=== PATIENT | male | born 1965 | race American Indian/Alaskan Native ===

== ENCOUNTER 2021-09-05 14:16 | Emergency (ER) | payer OTHER ==
[~2021-09-05] VITALS: Ht 180.3 cm; Wt 82.7 kg
[2021-09-05] MEDS ORDERED: ROSU10TA6 PO (14:28)
[2021-09-05] MEDS ORDERED: TELM1TAB16 PO (14:28)
[2021-09-05] MEDS ORDERED: AMLO1TAB25 PO (14:28)
[2021-09-05] MEDS ORDERED: NALT50TA4 PO (14:28)
[2021-09-05] MEDS ORDERED: HYDR50TA70 PO (14:28)
[2021-09-05] MEDS ORDERED: CYMB60CA4 PO (14:28)
[2021-09-05] MEDS ORDERED: MELA3TAB21 PO (14:28)
[2021-09-05] MEDS ORDERED: GABA-283 PO (14:28)
[2021-09-05] MEDS ORDERED: PREV15TA2 PO (14:28)
[2021-09-05] MEDS ORDERED: traMADol 50 MG TAB PO ONE (16:50)
[2021-09-05] MEDS ORDERED: MEDR4PAK PO (16:59)
--- OUTSIDE RECORDS SUMMARY | 2021-09-05 17:13 | CCD | Continuity of Care Document ---
Author Author Laith RIZO Organization Unknown Address [id number] [place] [address] [address] [place] [address] Phone [phone] Care Team Providers Care Scratcher Name Role Phone SYED RIZO AUTM [phone] Social History Type Date Description Comments Sex Unknown Procedures Date Code Description Status 08/01/2021 96906 Office/Outpatient Established Lo w MDM 20-29 Min Completed 04/18/2021 46107 Office/Outpatient New Low MDM 30 -44 Minutes Completed Encounters Type Date Location Provider Dx Diagnosis Office Visit 08/01/2021 2:00p [facility] ALEX Villafuerte M54.5 Low back pain M51.36 Other intervertebral disc de generation, lumbar region F41.9 Anxiety disorder, unspecifie d Office Visit 04/18/2021 10:30a [facility] ALEX Villafuerte I10 Essential (primary) hyperten joe E78.5 Hyperlipidemia, unspecified Assessments Date Code Description Provider 08/01/2021 M54.5 Low back pain ALEX Ruiz 08/01/2021 M51.36 Other intervertebral disc degene ration, lumbar region ALEX Wiley 08/01/2021 F41.9 Anxiety disorder, unspecified Fr ALEX Richards 04/18/2021 I10 Essential (primary) hypertension ALEX Wiley 04/18/2021 E78.5 Hyperlipidemia, unspecified ALEX Smith Referrals Refer to Reason for Referral Status Appt Date Pain Clinic @ [facility] PATIENT WITH C/O CHRONIC NEC K AND LOW BACK PAIN. PLEASE EVAL AND TREAT. Sent [address] [place] [address] [phone]
--- OUTSIDE RECORDS SUMMARY | 2021-09-05 17:14 | CCD ---
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 Role Phone Benjamin JONES MD Unavailable Unavailable ROSLYN, Benjamin SALAS MD Unavailable Unavailable ROSLYN, Benjamin SALAS MD Unavailable Unavailable ROSLYN, Benjamin SALAS MD Unavailable Unavailable ROSLYN, Benjamin SALAS MD Unavailable Unavailable ROSLYNBenjamin VICTORIA MD Unavailable Unavailable ROSLYN, Benjamin SALAS MD Unavailable Unavailable ROSLYN, Benjamin SALAS MD Unavailable Unavailable ROSLYN, Benjamin SALAS MD Unavailable Unavailable ROSLYN, Benjamin SALAS MD Unavailable Unavailable ROSLYN, Benjamin SALAS MD Unavailable Unavailable Benjamin JONES MD Unavailable Unavailable ROSLYNBenjamin VICTORIA MD Unavailable Unavailable ROSLYNBenjamin VICTORIA MD Unavailable Unavailable ROSLYNBenjamin MD Unavailable Unavailable ROSLYN, Benjamin SALAS MD Unavailable Unavailable ROSLYN, Benjamin SALAS MD Unavailable Unavailable ROSLYNBenjamin VICTORIA MD Unavailable Unavailable Benjamin JONES MD Unavailable Unavailable Benjamin JONES MD Unavailable Unavailable ROSLYNBenjamin VICTORIA MD Unavailable Unavailable ROSLYN, Benjamin SALAS MD Unavailable Unavailable ROSLYN, Benjamin SALSA MD Unavailable Unavailable ROSLYN, Benjamin SALAS MD Unavailable Unavailable ROSLYN, Benjamin SALAS MD Unavailable Unavailable ROSLYN, Benjamin SALAS MD Unavailable Unavailable ROSLYNBenjamin MD Unavailable Unavailable ROSLYNBenjamin VICTORIA MD Unavailable Unavailable ROSLYNBenjamin VICTORIA MD Unavailable Unavailable ROSLYNBenjamin MD Unavailable Unavailable ROSLYN, Benjamin SALAS MD Unavailable Unavailable ROSLYN, N DANICARI Unavailable Unavailable ROLSYN, N DANICARI Unavailable Unavailable ROSLYN, N NASRI Unavailable Unavailable ROSLYN, N NASRI Unavailable Unavailable ROSLYN, N NASRI MD Unavailable Unavailable ROSLYN, N NASRI Unavailable Unavailable ROSLYN, N DANICARI Unavailable Unavailable ROSLYN, N DANICARI Unavailable Unavailable ROSLYN, N DANICARI Unavailable Unavailable ROSLYN, N NASRI Unavailable Unavailable ROSLYN, N DANICARI Unavailable Unavailable ROSLYN, N NASRI Unavailable Unavailable ROSLYN, N DANICARI Unavailable Unavailable ROSLYN, N DANICARI Unavailable Unavailable ROSLYN, N DANICARI Unavailable Unavailable ROSLYN, N DANICARI Unavailable Unavailable ROSLYN, N NASRI MD Unavailable Unavailable ROSLYN, N DANICARI MD Unavailable Unavailable ROSLYN, N DANICARI MD Unavailable Unavailable ROSLYN, N DANICARI Unavailable Unavailable ROSLYN, N DANICARI Unavailable Unavailable ROSLYN, N DANICARI Unavailable Unavailable ROSLYN, N DANICARI Unavailable Unavailable ROSLYN, N JOSUE ALANIS Unavailable Unavailable ROSLYN, N DANICARI Unavailable Unavailable ROSLYN, N DANICARI Unavailable Unavailable ROSLYN, N JOSUE ALANIS Unavailable Unavailable ROSLYN, N JOSUE ALANIS Unavailable Unavailable ROSLYN, N JOSUE ALANIS Unavailable Unavailable ROSLYN, N DANICARI Unavailable Unavailable ROSLYN, N DANICARI Unavailable Unavailable ROSLYN, N DANICARI Unavailable Unavailable ROSLYN, N JOSUE ALANIS Unavailable Unavailable ROSLYN, Benjamin SALAS MD Unavailable Unavailable ROSLYN, N JOSUE ALANIS Unavailable Unavailable ROSLYN, N JOSUE ALANIS Unavailable Unavailable ROSLYN, N JOSUE ALANIS Unavailable Unavailable ROSLYN, N JOSUE ALANIS Unavailable Unavailable Marlon, Donnie Johnson MD Unavailable Unavailable Marlon, Donnie Johnson MD Unavailable Unavailable Marlon, Donnie Johnson MD Unavailable Unavailable Marlon, Donnie Johnson MD Unavailable Unavailable Marlon, Donnie Johnson MD Unavailable Unavailable Marlon, Donnie Johnson MD Unavailable Unavailable Marlon, Donnie Johnson MD Unavailable Unavailable Marlon, Donnie Johnson MD Unavailable Unavailable Marlon, Donnie Johnson MD Unavailable Unavailable Marlon, Donnie Johnson MD Unavailable Unavailable Marlon, Donnie Johnson MD Unavailable Unavailable Marlon, Donnie Johnson MD Unavailable Unavailable Marlon, Donnie Johnson MD Unavailable Unavailable Marlon, Donnie Johnson MD Unavailable Unavailable Marlon, Donnie Johnson MD Unavailable Unavailable Marlon, Donnie Johnson MD Unavailable Unavailable Marlon, A Alex MD Unavailable Unavailable Marlon, A Alex MD Unavailable Unavailable Marlon, A Alex MD Unavailable Unavailable Marlon, A Alex MD Unavailable Unavailable Marlon, A Alex MD Unavailable Unavailable Marlon, A Alex MD Unavailable Unavailable Marlon, A Alex MD Unavailable Unavailable Marlon, A Alex MD Unavailable Unavailable Marlon, A Alex MD Unavailable Unavailable Marlon, A Alex MD Unavailable Unavailable Marlon, A Alex MD Unavailable Unavailable Marlon, A Alex MD Unavailable Unavailable Marlon, A Alex MD Unavailable Unavailable Marlon, A Alex MD Unavailable Unavailable Marlon, A Alex MD Unavailable Unavailable Marlon, A Alex MD Unavailable Unavailable Marlon, A Alex MD Unavailable Unavailable Marlon, A Alex MD Unavailable Unavailable Marlon, A Alex MD Unavailable Unavailable Mralon, A Alex MD Unavailable Unavailable Marlon, A Alex MD Unavailable Unavailable Marlon, A Alex MD Unavailable Unavailable Marlon, A Alex MD Unavailable Unavailable Marlon, A Alex MD Unavailable Unavailable Marlon, A Alex MD Unavailable Unavailable Marlon, A Alex MD Unavailable Unavailable Marlon, A Alex MD Unavailable Unavailable Marlon, A Alex MD Unavailable Unavailable Malron, A Alex MD Unavailable Unavailable Marlon, A Alex MD Unavailable Unavailable Marlon, A Alex MD Unavailable Unavailable Marlon, A Alex MD Unavailable Unavailable Marlon, A Alex MD Unavailable Unavailable Marlon, A Alex MD Unavailable Unavailable Marlon, A Alex MD Unavailable Unavailable Marlon, A Alex MD Unavailable Unavailable Marlon, A Alex MD Unavailable Unavailable Marlon, A Alex MD Unavailable Unavailable Marlon, A Alex MD Unavailable Unavailable Marlon, A Alex MD Unavailable Unavailable Marlon, A Alex MD Unavailable Unavailable Marlon, A Alex MD Unavailable Unavailable Marlon, A Alex MD Unavailable Unavailable Marlon, A Alex MD Unavailable Unavailable Marlon, A Alex MD Unavailable Unavailable Marlon, A Alex MD Unavailable Unavailable Marlon, A Alex MD Unavailable Unavailable Marlon, A Alex MD Unavailable Unavailable Marlon, A Alex MD Unavailable Unavailable Marlon, A Alex MD Unavailable Unavailable Marlon, A Alex MD Unavailable Unavailable Marlon, A Alex MD Unavailable Unavailable Marlon, A Alex MD Unavailable Unavailable Marlon, A Alex MD Unavailable Unavailable Marlon, A Alex MD Unavailable Unavailable Marlon, A Alex MD Unavailable Unavailable Marlon, A Alex MD Unavailable Unavailable Marlon, A Alex MD Unavailable Unavailable Donnie Mason MD Unavailable Unavailable Donnie Mason MD Unavailable Unavailable Donnie Mason MD Unavailable Unavailable KabbliJammiegavika ALANIS Unavailable Unavailable KabbliJammiegavika ALANIS Unavailable Unavailable Kabbli R Sofiagavika ALANIS Unavailable Unavailable Kabbli R Sofiagavika ALANIS Unavailable Unavailable Kabbli R Gangavika ALANIS Unavailable Unavailable Kabbli R Sofiagavika ALANIS Unavailable Unavailable Kabbli R Sofiagavika ALANIS Unavailable Unavailable Kabbli R Sofiagavika ALANIS Unavailable Unavailable Kabbli R Sofiagavika ALANIS Unavailable Unavailable Kabbli R Sofiagavika ALANIS Unavailable Unavailable Kabbli R Kemar ALANIS Unavailable Unavailable KabbliJammiegavika ALANIS Unavailable Unavailable KabbliJammiegavika ALANIS Unavailable Unavailable KabbliJammiegavika ALANIS Unavailable Unavailable Kabbli R Sofiagavika ALANIS Unavailable Unavailable Kabbli R Sofiagavika ALANIS Unavailable Unavailable KaamyliJammiegavika ALANIS Unavailable Unavailable Kabbli R Sofiagavika ALANIS Unavailable Unavailable KabbliJammiegavika ALANIS Unavailable Unavailable Kabbli R Sofiagavika ALANIS Unavailable Unavailable KaJammie corona MD Unavailable Unavailable KaamyliJammiegavika ALANIS Unavailable Unavailable KabbliJammiegavika ALANIS Unavailable Unavailable KaJammie coronagavika ALANIS Unavailable Unavailable Kacj R Sofiagavika ALANIS Unavailable Unavailable KaJammie corona MD Unavailable Unavailable Kacj R Sofiagavika ALANIS Unavailable Unavailable KabbJamime pierregavika ALANIS Unavailable Unavailable Kaamyli R Sofiagavika ALANIS Unavailable Unavailable Kabbli R Sofiagavika ALANIS Unavailable Unavailable Jammie Gregggavika ALANIS Unavailable Unavailable Jammie Gregggavika ALANIS Unavailable Unavailable Jammie Gregggavika ALANIS Unavailable Unavailable Jammie Gregg MD Unavailable Unavailable Jammie Gregg MD Unavailable Unavailable Ar Riddle MD Unavailable Unavailable Ar Riddle MD Unavailable Unavailable Ar Riddle MD Unavailable Unavailable Ar Riddle MD Unavailable Unavailable Ar Riddle MD Unavailable Unavailable Ar Riddle MD Unavailable Unavailable Tong, Ar Collazo MD Unavailable Unavailable Tong, Ar Collazo MD Unavailable Unavailable Tong, Ar Collazo MD Unavailable Unavailable Tong, Ar Collazo MD Unavailable Unavailable Tong, Ar Collazo MD Unavailable Unavailable Tong, Ar Collazo MD Unavailable Unavailable Tong, Ar Collazo MD Unavailable Unavailable Tong, rA Collazo MD Unavailable Unavailable Tong, Ar Collazo MD Unavailable Unavailable Tong, Ar Collazo MD Unavailable Unavailable Tong, Ar Collazo MD Unavailable Unavailable Tong, Ar Collazo MD Unavailable Unavailable Tong, Ar Collazo MD Unavailable Unavailable Tong, Ar Collazo MD Unavailable Unavailable Tong, Ar Collazo MD Unavailable Unavailable Tong, Ar Collazo MD Unavailable Unavailable Tong, Ar Collazo MD Unavailable Unavailable Tong, Ar Collazo MD Unavailable Unavailable Tong, Ar Collazo MD Unavailable Unavailable Tong, Ar Collazo MD Unavailable Unavailable Tong, Ar Collazo MD Unavailable Unavailable Tong, Ar Collazo MD Unavailable Unavailable Tong, Ar Collazo MD Unavailable Unavailable Tong, Ar Collazo MD Unavailable Unavailable Tong, Ar Collazo MD Unavailable Unavailable Tong, Ar Collazo MD Unavailable Unavailable Tong, Ar Collazo MD Unavailable Unavailable Tong, Ar Collazo MD Unavailable Unavailable Tong, Ar Collazo MD Unavailable Unavailable Tong, Ar Collazo MD Unavailable Unavailable Tong, Ar Collazo MD Unavailable Unavailable Tong, Ar Collazo MD Unavailable Unavailable Tong, Ar Collazo MD Unavailable Unavailable Tong, Ar Collazo MD Unavailable Unavailable Tong, Ar Collazo MD Unavailable Unavailable Tong, Ar Collazo MD Unavailable Unavailable Tong, Ar Collazo MD Unavailable Unavailable Tong, Ar Collazo MD Unavailable Unavailable Tong, Ar Collazo MD Unavailable Unavailable Tong, Ar Collazo MD Unavailable Unavailable Tong, Ar Collazo MD Unavailable Unavailable Tong, Ar Collazo MD Unavailable Unavailable Tong, Ar Collazo MD Unavailable Unavailable Tong, Ar Collazo MD Unavailable Unavailable Tong, Ar Collazo MD Unavailable Unavailable Tong, Ar Collazo MD Unavailable Unavailable Tong, Ar Collazo MD Unavailable Unavailable Tong, Ar Collazo MD Unavailable Unavailable Tong, Ar Collazo MD Unavailable Unavailable Tong, Ar Collazo MD Unavailable Unavailable Tong, Ar Collazo MD Unavailable Unavailable Tong, Ar Collazo MD Unavailable Unavailable Tong, Ar Collazo MD Unavailable Unavailable Tong, Ar Collazo MD Unavailable Unavailable Tong, Ar Collazo MD Unavailable Unavailable Tong, Ar Collazo MD Unavailable Unavailable Tong, Ar Collazo MD Unavailable Unavailable Tong, Ar Collazo MD Unavailable Unavailable Tong, Ar Collazo MD Unavailable Unavailable Tong, Ar Collazo MD Unavailable Unavailable Tong, Ar Collazo MD Unavailable Unavailable Tong, Ar Collazo MD Unavailable Unavailable Tong, Ar Collazo MD Unavailable Unavailable Tong, Ar Collazo MD Unavailable Unavailable Tong, Ar Collazo MD Unavailable Unavailable Tong, Ar Collazo MD Unavailable Unavailable Tong, Ar Collazo MD Unavailable Unavailable Tong, Ar Collazo MD Unavailable Unavailable Tong, Ar Collazo MD Unavailable Unavailable Tong, Ar Collazo MD Unavailable Unavailable Tong, Ar Collazo MD Unavailable Unavailable MITCHELL, M ARYAN PA Unavailable Unavailable MITCHELL, M ARYAN PA Unavailable Unavailable MITCHELL, M ARYAN PA Unavailable Unavailable MITCHELL, M ARYAN PA Unavailable Unavailable MITCHELL, M ARYAN PA Unavailable Unavailable MITCHELL, M ARYAN PA Unavailable Unavailable MITCHELL, M ARYAN PA Unavailable Unavailable MITCHELL, M ARYAN PA Unavailable Unavailable MITCHELL, M ARYAN PA Unavailable Unavailable MITCHELL, M ARYAN PA Unavailable Unavailable MITCHELL, M ARYAN PA Unavailable Unavailable MITCHELL, M ARYAN PA Unavailable Unavailable MITCHELL, M ARYAN PA Unavailable Unavailable MITCHELL, M ARYAN PA Unavailable Unavailable MITCHELL, M ARYAN PA Unavailable Unavailable MITCHELL, M ARYAN PA Unavailable Unavailable MITCHELL, M ARYAN PA Unavailable Unavailable MITCHELL, M ARYAN PA Unavailable Unavailable MITCHELL, M ARYAN PA Unavailable Unavailable MITCHELL, M ARYAN PA Unavailable Unavailable MITCHELL, M ARYAN PA Unavailable Unavailable MITCHELL, M ARYAN PA Unavailable Unavailable MITCHELL, M ARYAN PA Unavailable Unavailable MITCHELL, M ARYAN PA Unavailable Unavailable Jammie Gregg MD Unavailable Unavailable Jammie Gregg MD Unavailable Unavailable Jammie Gregg MD Unavailable Unavailable Jammie Gregg MD Unavailable Unavailable Jammie Gregg MD Unavailable Unavailable Jammie Gregg MD Unavailable Unavailable Jammie Gregg MD Unavailable Unavailable Jammie Gregg MD Unavailable Unavailable Jammie Gregg MD Unavailable Unavailable Jammie Gregg MD Unavailable Unavailable Jammie Gregg MD Unavailable Unavailable Jammie Gregg MD Unavailable Unavailable Jammie Gregg MD Unavailable Unavailable Jammie Gregg MD Unavailable Unavailable Jammie Gregg MD Unavailable Unavailable Jammie Gregg MD Unavailable Unavailable Jammie Gregg MD Unavailable Unavailable Jammie Gregg MD Unavailable Unavailable Jammie Gregg MD Unavailable Unavailable Jammie Gregg MD Unavailable Unavailable Jammie Gregg MD Unavailable Unavailable Jammie rGegg MD Unavailable Unavailable KaJammie corona MD Unavailable Unavailable Kabbli, Jammie Reinoso MD Unavailable Unavailable Kaamyli, Jammie Reinoso MD Unavailable Unavailable Kabbli, Jammie Reinoso MD Unavailable Unavailable Cristino, Jammie Reinoso MD Unavailable Unavailable Jammie Gregg MD Unavailable Unavailable Cristino, Jammie Reinoso MD Unavailable Unavailable Cristino, Jammie Reinoso MD Unavailable Unavailable Kacj, Jammie Reinoso MD Unavailable Unavailable Cristino, Jammie Reinoso MD Unavailable Unavailable Kacj, Jammie Reinoso MD Unavailable Unavailable Kacj, Jammie Reinoso MD Unavailable Unavailable Kabbgabby, Jammie Reinoso MD Unavailable Unavailable DUSSING, RUTH SALESPERSON JEWELRY-C Unavailable Unavailable DUSSING, RUTH SALESPERSON JEWELRY-C Unavailable Unavailable DUSSING, RUTH SALESPERSON JEWELRY-C Unavailable Unavailable DUSSING, RUTH SALESPERSON JEWELRY-C Unavailable Unavailable DUSSING, RUTH SALESPERSON JEWELRY-C Unavailable Unavailable DUSSING, RUTH SALESPERSON JEWELRY-C Unavailable Unavailable DUSSING, RUTH SALESPERSON JEWELRY-C Unavailable Unavailable DUSSING, RUTH SALESPERSON JEWELRY-C Unavailable Unavailable DUSSING, RUTH SALESPERSON JEWELRY-C Unavailable Unavailable DUSSING, RUTH SALESPERSON JEWELRY-C Unavailable Unavailable DUSSING, RUTH SALESPERSON JEWELRY-C Unavailable Unavailable DUSSING, RUTH SALESPERSON JEWELRY-C Unavailable Unavailable DUSSING, RUTH SALESPERSON JEWELRY-C Unavailable Unavailable DUSSING, RUTH SALESPERSON JEWELRY-C Unavailable Unavailable DUSSING, RUTH SALESPERSON JEWELRY-C Unavailable Unavailable DUSSING, RUTH SALESPERSON JEWELRY-C Unavailable Unavailable DUSSING, RUTH SALESPERSON JEWELRY-C Unavailable Unavailable DUSSING, RUTH SALESPERSON JEWELRY-C Unavailable Unavailable DUSSING, RUTH SALESPERSON JEWELRY-C Unavailable Unavailable DUSSING, RUTH SALESPERSON JEWELRY-C Unavailable Unavailable DUSSING, RUTH SALESPERSON JEWELRY-C Unavailable Unavailable DUSSING, RUTH SALESPERSON JEWELRY-C Unavailable Unavailable DUSSING, RUTH SALESPERSON JEWELRY-C Unavailable Unavailable DUSSING, RUTH SALESPERSON JEWELRY-C Unavailable Unavailable DUSSING, RUTH SALESPERSON JEWELRY-C Unavailable Unavailable DUSSING, RUTH SALESPERSON JEWELRY-C Unavailable Unavailable DUSSING, RUTH SALESPERSON JEWELRY-C Unavailable Unavailable DUSSING, RUTH SALESPERSON JEWELRY-C Unavailable Unavailable DUSSING, RUTH SALESPERSON JEWELRY-C Unavailable Unavailable DUSSING, RUTH SALESPERSON JEWELRY-C Unavailable Unavailable DUSSING, RUTH SALESPERSON JEWELRY-C Unavailable Unavailable DUSSING, RUTH SALESPERSON JEWELRY-C Unavailable Unavailable DUSSING, RUTH SALESPERSON JEWELRY-C Unavailable Unavailable DUSSING, RUTH SALESPERSON JEWELRY-C Unavailable Unavailable Deja Thomas Unavailable Unavailable Jammie BAKER MD Unavailable Unavailable Jammie BAKER MD Unavailable Unavailable Jammie BAKER MD Unavailable Unavailable Jammie BAKER MD Unavailable Unavailable Jammie BAKER MD Unavailable Unavailable Jammie BAKER MD Unavailable Unavailable Jammie BAKER MD Unavailable Unavailable Jammie BAKER MD Unavailable Unavailable Jammie BAKER MD Unavailable Unavailable Jammie BAKER MD Unavailable Unavailable Jammie BAKER MD Unavailable Unavailable Jammie BAKER MD Unavailable Unavailable Jammie BAKER MD Unavailable Unavailable Jammie BAKER MD Unavailable Unavailable Jammie BAKER MD Unavailable Unavailable Jammie BAKER MD Unavailable Unavailable Jammie BAKER MD Unavailable Unavailable Jammie BAKER MD Unavailable Unavailable Jammie BAKER MD Unavailable Unavailable Edmundo Titus MD Unavailable Unavailable Edmundo Titus MD Unavailable Unavailable Edmundo Titus MD Unavailable Unavailable Edmundo Titus MD Unavailable Unavailable Edmundo Titus MD Unavailable Unavailable Edmundo Titus MD Unavailable Unavailable Edmundo Titus MD Unavailable Unavailable Edmundo Titus MD Unavailable Unavailable Edmundo Titus MD Unavailable Unavailable Edmundo Titus MD Unavailable Unavailable Edmundo Titus MD Unavailable Unavailable Edmundo Titus MD Unavailable Unavailable Edmundo Titus MD Unavailable Unavailable Edmundo Titus MD Unavailable Unavailable Edmundo Titus MD Unavailable Unavailable Edmundo Titus MD Unavailable Unavailable Edmundo Titus MD Unavailable Unavailable RatnarajahEdmundo MD Unavailable Unavailable Ratnarajah, Edmundo Barba MD Unavailable Unavailable Ratnarajah, Edmundo Barba MD Unavailable Unavailable Ratnarajah, Edmundo Barba MD Unavailable Unavailable Ratnarajah, Edmundo Barba MD Unavailable Unavailable Ratnarajah, Edmundo Barba MD Unavailable Unavailable Ratnarajah, Edmundo Barba MD Unavailable Unavailable Ratnarajah, Edmundo Barba MD Unavailable Unavailable Ratnarajah, Edmundo Barba MD Unavailable Unavailable Ratnarajah, Edmundo Barba MD Unavailable Unavailable Ratnarajah, Edmundo Barba MD Unavailable Unavailable Ratnarajah, Edmundo Barba MD Unavailable Unavailable Ratnarajah, Edmundo Barba MD Unavailable Unavailable Ratnarajah, Edmundo Barba MD Unavailable Unavailable Ratnarajah, Edmundo Barba MD Unavailable Unavailable Ratnarajah, Edmundo Barba MD Unavailable Unavailable Ratnarajah, Edmundo Barba MD Unavailable Unavailable Ratnarajah, Edmundo Barba MD Unavailable Unavailable Ratnarajah, Edmundo Barba MD Unavailable Unavailable Ratnarajah, Edmundo Barba MD Unavailable Unavailable Ratnarajah, Edmundo Barba MD Unavailable Unavailable Ratnarajah, Edmundo Barba MD Unavailable Unavailable Ratnarajah, Edmundo Barba MD Unavailable Unavailable Ratnarajah, Edmundo Barba MD Unavailable Unavailable Ratnarajah, Edmundo Barba MD Unavailable Unavailable Ratnarajah, Edmundo Barba MD Unavailable Unavailable RatnarajahEdmundo MD Unavailable Unavailable RatnarajahEdmundo MD Unavailable Unavailable RatnarajahEdmundo MD Unavailable Unavailable RatnarajahEdmundo MD Unavailable Unavailable RatnarajahEdmundo MD Unavailable Unavailable RatnarajahEdmundo MD Unavailable Unavailable RatnararovertohEdmundo MD Unavailable Unavailable RatnarajahEdmundo MD Unavailable Unavailable Ratnarajah, Edmundo Barba MD Unavailable Unavailable Ratnarajah, Edmundo Barba MD Unavailable Unavailable Ratnarajah, Edmundo Barba MD Unavailable Unavailable RatnararovertohEdmundo MD Unavailable Unavailable RatnarajahEdmundo MD Unavailable Unavailable RatnarajahEdmundo MD Unavailable Unavailable RatnarajahEdmundo MD Unavailable Unavailable RatnarajahEdmundo MD Unavailable Unavailable RatnaraEdmundo roach MD Unavailable Unavailable Ratnararovertoh, Edmundo Barba MD Unavailable Unavailable Ratnararovertoh, Edmundo Barba MD Unavailable Unavailable Ratnararovertoh, Edmundo Barba MD Unavailable Unavailable Deedeenaradoc, Edmundo Barba MD Unavailable Unavailable Ratnaradoc, Edmundo Barba MD Unavailable Unavailable Daniadoc, Edmundo Barba MD Unavailable Unavailable Deedeenaradoc, Edmundo Barba MD Unavailable Unavailable Ratnaradoc, Edmundo Barba MD Unavailable Unavailable Ratnaradoc, Edmundo Barba MD Unavailable Unavailable Ratnaradoc, Edmundo Barba MD Unavailable Unavailable Ratnaradoc, Edmundo Barba MD Unavailable Unavailable Ratnaradoc, Edmundo Barba MD Unavailable Unavailable Ratnararovertoh, Edmundo Barba MD Unavailable Unavailable Deedeenaradoc, Edmundo Barba MD Unavailable Unavailable Ratnaradoc, Edmundo Barba MD Unavailable Unavailable Ariela, Edmundo Barba MD Unavailable Unavailable Edmundo Titus MD Unavailable Unavailable Ratnaradoc, Edmundo Barba MD Unavailable Unavailable Ratnararovertoh, Edmundo Barba MD Unavailable Unavailable Tech, Nuclear Bf Unavailable LESO, DANIS Unavailable Unavailable LESO, DANIS Unavailable Unavailable LESO, DANIS Unavailable Unavailable LESO, DANIS Unavailable Unavailable LESO, DANIS Unavailable Unavailable LESO, DANIS Unavailable Unavailable Derosalia, Jammie Martinez MD Unavailable Unavailable Derosalia, Jammie Martinez MD Unavailable Unavailable Derosalia, Jammie Martinez MD Unavailable Unavailable Derosalia, Jammie Martinez MD Unavailable Unavailable Derosalia, Jammie Martinez MD Unavailable Unavailable Derosalia, Jammie Martinez MD Unavailable Unavailable Derosalia, Jammie Martinez MD Unavailable Unavailable Derosalia, Jammie Martinez MD Unavailable Unavailable Derosalia, Jammie Martinez MD Unavailable Unavailable Derosalia, Jammie Martinez MD Unavailable Unavailable Derosalia, Jammie Martinez MD Unavailable Unavailable Derosalia, Jammie Martinez MD Unavailable Unavailable Derosalia, Jammie Martinez MD Unavailable Unavailable Derosalia, Jammie Martinez MD Unavailable Unavailable Derosalia, Jammie Martinez MD Unavailable Unavailable Derosalia, Jammie Martinez MD Unavailable Unavailable Derosalia, Jammie Martinez MD Unavailable Unavailable Derosalia, Jammie Martinez MD Unavailable Unavailable Derosalia, Jammie Martinez MD Unavailable Unavailable Derosalia, Jammie Martinez MD Unavailable Unavailable Derosalia, R Juan ALANIS Unavailable Unavailable Derosalia, R Juan ALANIS Unavailable Unavailable Derosalia, R Juan ALANIS Unavailable Unavailable Derosalia, R Juan ALANIS Unavailable Unavailable Derosalia, R Juan ALANIS Unavailable Unavailable Derosalia, R Juan ALANIS Unavailable Unavailable Derosalia, R Juan ALANIS Unavailable Unavailable Derosalia, R Juan ALANIS Unavailable Unavailable Derosalia, R Juan ALANIS Unavailable Unavailable Derosalia, R Juan ALANIS Unavailable Unavailable Derosalia, R Juan ALANIS Unavailable Unavailable Derosalia, R Juan ALANIS Unavailable Unavailable Derosalia, R Juan ALANIS Unavailable Unavailable Derosalia, R Juan ALANIS Unavailable Unavailable Derosalia, R Juan ALANIS Unavailable Unavailable Derosalia, R Juan ALANIS Unavailable Unavailable Derosalia, R Juan ALANIS Unavailable Unavailable Derosalia, R Juan ALANIS Unavailable Unavailable Derosalia, R Juan ALANIS Unavailable Unavailable Derosalia, R Juan ALANIS Unavailable Unavailable Derosalia, R Juan ALANIS Unavailable Unavailable Derosalia, R Juan ALANIS Unavailable Unavailable Derosalia, R Juan ALANIS Unavailable Unavailable Derosalia, R Juan ALANIS Unavailable Unavailable Derosalia, R Juan ALANIS Unavailable Unavailable Derosalia, R Juan ALANIS Unavailable Unavailable Derosalia, R Juan ALANIS Unavailable Unavailable Derosalia, R Juan ALANIS Unavailable Unavailable Derosalia, R Juan ALANIS Unavailable Unavailable Derosalia, R Juan ALANIS Unavailable Unavailable Derosalia, R Juan ALANIS Unavailable Unavailable Derosalia, R Juan ALANIS Unavailable Unavailable Derosalia, R Juan ALANIS Unavailable Unavailable Derosalia, R Juan ALANIS Unavailable Unavailable Derosalia, R Juan ALANIS Unavailable Unavailable Derosalia, R Juan ALANIS Unavailable Unavailable Derosalia, R Juan ALANIS Unavailable Unavailable Derosalia, R Juan ALANIS Unavailable Unavailable Derosalia, R Juan ALANIS Unavailable Unavailable Derosalia, R Juan ALANIS Unavailable Unavailable Derosalia, R Juan ALANIS Unavailable Unavailable Derosalia, R Juan ALANIS Unavailable Unavailable Derosalia, R Juan ALANIS Unavailable Unavailable Derosalia, R Juan ALANIS Unavailable Unavailable Derosalia, R Juan ALANIS Unavailable Unavailable Derosalia, R Juan ALANIS Unavailable Unavailable VanArnam JR, W Cyrus PA Unavailable Unavailable VanArnam JR, W Cyrus PA Unavailable Unavailable VanArnam JR, W Cyrus PA Unavailable Unavailable VanArnam JR, W Cyrus PA Unavailable Unavailable VanArnam JR, W Cyrus PA Unavailable Unavailable VanArnam JR, W Cyrus PA Unavailable Unavailable VanArnam JR, W Cyrus PA Unavailable Unavailable VanArnam JR, W Cyrus PA Unavailable Unavailable VanArnam JR, W Cyrus PA Unavailable Unavailable VanArnam JR, W Cyrus PA Unavailable Unavailable VanArnam JR, W Cyrus PA Unavailable Unavailable VanArnam JR, W Cyrus PA Unavailable Unavailable VanArnam JR, W Cyrus PA Unavailable Unavailable VanArnam JR, W Cyrus PA Unavailable Unavailable VanArnam JR, W Cyrus PA Unavailable Unavailable VanArnam JR, W Cyrus PA Unavailable Unavailable VanArnam JR, W Cyrus PA Unavailable Unavailable VanArnam JR, W Cyrus PA Unavailable Unavailable VanArnam JR, W Cyrus PA Unavailable Unavailable VanArnam JR, W Cyrus PA Unavailable Unavailable VanArnam JR, W Cyrus PA Unavailable Unavailable VanArnam JR, W Cyrus PA Unavailable Unavailable VanArnam JR, W Cyrus PA Unavailable Unavailable VanArnam JR, W Cyrus PA Unavailable Unavailable VanArnam JR, W Cyrus PA Unavailable Unavailable VanArnam JR, W Cyrus PA Unavailable Unavailable VanArnam JR, W Cyrus PA Unavailable Unavailable VanArnam JR, W Cyrus PA Unavailable Unavailable VanArnam JR, W Cyrus PA Unavailable Unavailable VanArnam JR, W Cyrus PA Unavailable Unavailable VanArnam JR, W Cyrus PA Unavailable Unavailable VanArnam JR, W Cyrus PA Unavailable Unavailable VanArnam JR, W Cyrsu PA Unavailable Unavailable VanArnam JR, W Cyrus PA Unavailable Unavailable VanArnam JR, W Cyrus PA Unavailable Unavailable VanArnam JR, W Ycrus PA Unavailable Unavailable VanArnam JR, W Cyrus PA Unavailable Unavailable VanArnam JR, W Cyrus PA Unavailable Unavailable VanArnam JR, W Cyrus PA Unavailable Unavailable VanArnam JR, W Cyrus PA Unavailable Unavailable VanArnam JR, W Cyrus PA Unavailable Unavailable VanArnam JR, W Cyrus PA Unavailable Unavailable VanArnam JR, W Cyrus PA Unavailable Unavailable Donnie Mason MD Unavailable Unavailable Donnie Mason MD Unavailable Unavailable Donnie Mason MD Unavailable Unavailable Donnie Mason MD Unavailable Unavailable Donnie Mason MD Unavailable Unavailable Donnie Mason MD Unavailable Unavailable Donnie Mason MD Unavailable Unavailable Donnie Mason MD Unavailable Unavailable Donnie Mason MD Unavailable Unavailable Donnie Mason MD Unavailable Unavailable Donnie Mason MD Unavailable Unavailable Marlon, A Alex MD Unavailable Unavailable Marlon, A Alex MD Unavailable Unavailable Marlon, A Alex MD Unavailable Unavailable Marlon, A Alex MD Unavailable Unavailable Marlon, A Alex MD Unavailable Unavailable Marlon, A Alex MD Unavailable Unavailable Marlon, A Alex MD Unavailable Unavailable Marlon, A Alex MD Unavailable Unavailable Marlon, A Alex MD Unavailable Unavailable Marlon, A Alex MD Unavailable Unavailable Marlon, A Alex MD Unavailable Unavailable Marlon, A Alex MD Unavailable Unavailable Marlon, A Alex MD Unavailable Unavailable Marlon, A Alex MD Unavailable Unavailable Marlon, A Alex MD Unavailable Unavailable Marlon, A Alex MD Unavailable Unavailable Marlon, A Alex MD Unavailable Unavailable Marlon, A Alex MD Unavailable Unavailable Marlon, A Alex MD Unavailable Unavailable Marlon, A Alex MD Unavailable Unavailable Marlon, A Alex MD Unavailable Unavailable Marlon, A Alex MD Unavailable Unavailable Marlon, A Alex MD Unavailable Unavailable Marlon, A Alex MD Unavailable Unavailable Marlon, A Alex MD Unavailable Unavailable Marlon, A Alex MD Unavailable Unavailable Marlon, A Alex MD Unavailable Unavailable Marlon, A Alex MD Unavailable Unavailable Marlon, A Alex MD Unavailable Unavailable Marlon, A Alex MD Unavailable Unavailable Marlon, A Alex MD Unavailable Unavailable Marlon, A Alex MD Unavailable Unavailable Marlon, A Alex MD Unavailable Unavailable Marlon, A Alex MD Unavailable Unavailable Marlon, A Alex MD Unavailable Unavailable Marlon, A Alex MD Unavailable Unavailable Marlon, A Alex MD Unavailable Unavailable Marlon, A Alex MD Unavailable Unavailable Marlon, A Alex MD Unavailable Unavailable Marlon, A Alex MD Unavailable Unavailable Marlon, A Alex MD Unavailable Unavailable Marlon, A Alex MD Unavailable Unavailable Marlon, A Alex MD Unavailable Unavailable Marlon, A Alex MD Unavailable Unavailable Marlon, A Alex MD Unavailable Unavailable Marlon, A Alex MD Unavailable Unavailable Marlon, A Alex MD Unavailable Unavailable Marlon, A Alex MD Unavailable Unavailable Marlon, A Alex MD Unavailable Unavailable Marlon, A Alex MD Unavailable Unavailable Marlon, A Alex MD Unavailable Unavailable Marlon, A Alex MD Unavailable Unavailable Marlon, A Alex MD Unavailable Unavailable Marlon, A Alex MD Unavailable Unavailable Marlon, A Alex MD Unavailable Unavailable Marlon, A Alex MD Unavailable Unavailable Marlon, A Alex MD Unavailable Unavailable Marlon, A Alex MD Unavailable Unavailable Marlon, A Alex MD Unavailable Unavailable Marlon, A Alex MD Unavailable Unavailable Marlon, A Alex MD Unavailable Unavailable Marlon, A Alex MD Unavailable Unavailable Marlon, A Alex MD Unavailable Unavailable Marlon, A Alex MD Unavailable Unavailable Marlon, A Alex MD Unavailable Unavailable Marlon, A Alex MD Unavailable Unavailable Scot, A Nathanael PA Unavailable Unavailable Scot, A Nathanael PA Unavailable Unavailable Scot, A Nathanael PA Unavailable Unavailable Scot, A Nathanael PA Unavailable Unavailable Scot, A Nathanael PA Unavailable Unavailable Scot, A Nathanael PA Unavailable Unavailable Scot, A Nathanael PA Unavailable Unavailable Scot, A Nathanael PA Unavailable Unavailable Scot, A Nathanael PA Unavailable Unavailable Scot, A Nathanael PA Unavailable Unavailable Scot, A Nathanael PA Unavailable Unavailable Scot, A Nathanael PA Unavailable Unavailable Scot, A Nathanael PA Unavailable Unavailable Scot, A Nathanael PA Unavailable Unavailable Scot, A Nathanael PA Unavailable Unavailable Scot, A Nathanael PA Unavailable Unavailable Scot, A Nathanael PA Unavailable Unavailable Scot, A Nathanael PA Unavailable Unavailable Scot, A Nathanael PA Unavailable Unavailable Scot, A Nathanael PA Unavailable Unavailable Scot, A Nathanael PA Unavailable Unavailable Scot, A Nathanael PA Unavailable Unavailable Scot, A Nathanael PA Unavailable Unavailable Scot, A Nathanael PA Unavailable Unavailable Scot, A Nathanael PA Unavailable Unavailable Csot, A Nathanael PA Unavailable Unavailable Scot, A Nathanael PA Unavailable Unavailable Scot, A Nathanael PA Unavailable Unavailable Scot, A Nathanael PA Unavailable Unavailable Scot, A Nathanael PA Unavailable Unavailable Scot, A Nathanael PA Unavailable Unavailable Scot, A Nathanael PA Unavailable Unavailable Scot, A Nathanael PA Unavailable Unavailable Scot, A Nathanael PA Unavailable Unavailable Scot, A Nathanael PA Unavailable Unavailable Scot, A Nathanael PA Unavailable Unavailable Scot, A Nathanael PA Unavailable Unavailable Scot, A Nathanael PA Unavailable Unavailable Scot, A Nathanael PA Unavailable Unavailable Scot, A Nathanael PA Unavailable Unavailable Scot, A Nathanael PA Unavailable Unavailable Scot, A Nathanael PA Unavailable Unavailable Scot, A Nathanael PA Unavailable Unavailable Scot, A Nathanael PA Unavailable Unavailable Scot, A Nathanael PA Unavailable Unavailable Scot, A Nathanael PA Unavailable Unavailable Scot, A Nathanael PA Unavailable Unavailable Scot, A Nathanael PA Unavailable Unavailable Scot, A Nathanael PA Unavailable Unavailable Scot, A Nathanael PA Unavailable Unavailable Scot, A Nathanael PA Unavailable Unavailable Scot, A Nathanael PA Unavailable Unavailable Scot, A Nathanael PA Unavailable Unavailable Scot, A Nathanael PA Unavailable Unavailable Scot, A Nathanael PA Unavailable Unavailable Scot, A Nathanael PA Unavailable Unavailable Scot, A Nathanael PA Unavailable Unavailable Scot, A Nathanael PA Unavailable Unavailable Scot, A Nathanael PA Unavailable Unavailable Scot, A Nathanael PA Unavailable Unavailable Scot, A Nathanael PA Unavailable Unavailable Scot, A Nathanael PA Unavailable Unavailable Scot, A Nathanael PA Unavailable Unavailable Scot, A Nathanael PA Unavailable Unavailable Scot, A Nathanael PA Unavailable Unavailable Scot, A Nathanael PA Unavailable Unavailable Scot, A Nathanael PA Unavailable Unavailable Scot, A Nathanael PA Unavailable Unavailable Scot, A Nathanael PA Unavailable Unavailable Scot, A Nathanael PA Unavailable Unavailable Scot, A Nathanael PA Unavailable Unavailable Scot, A Nathanael PA Unavailable Unavailable Scot, A Nathanael PA Unavailable Unavailable Scot, A Nathanael PA Unavailable Unavailable Scot, A Nathanael PA Unavailable Unavailable TONTARSKI, G SYED PA Unavailable Unavailable TONTARSKI, G SYED PA Unavailable Unavailable TONTARSKI, G SYED PA Unavailable Unavailable TONTARSKI, G SYED PA Unavailable Unavailable TONTARSKI, G SYED PA Unavailable Unavailable TONTARSKI, G SYED PA Unavailable Unavailable TONTARSKI, G SYED PA Unavailable Unavailable TONTARSKI, G SYED PA Unavailable Unavailable TONTARSKI, G SYED PA Unavailable Unavailable TONTARSKI, G SYED PA Unavailable Unavailable TONTARSKI, G SYED PA Unavailable Unavailable TONTARSKI, G SYED PA Unavailable Unavailable TONTARSKI, G SYED PA Unavailable Unavailable TONTARSKI, G SYED PA Unavailable Unavailable TONTARSKI, G SYED PA Unavailable Unavailable TONTARSKI, G SYED PA Unavailable Unavailable TONTARSKI, G SYED PA Unavailable Unavailable TONTARSKI, G SYED PA Unavailable Unavailable TONTARSKI, G SYED PA Unavailable Unavailable TONTARSKI, G SYED PA Unavailable Unavailable TONTARSKI, G SYED PA Unavailable Unavailable TONTARSKI, G SYED PA Unavailable Unavailable TONTARSKI, G SYED PA Unavailable Unavailable TONTARSKI, G SYED PA Unavailable Unavailable TONTARSKI, G SYED PA Unavailable Unavailable TONTARSKI, G SYED PA Unavailable Unavailable TONTARSKI, G SYED PA Unavailable Unavailable TONTARSKI, G SYED PA Unavailable Unavailable TONTARSKI, G SYED PA Unavailable Unavailable TONTARSKI, G SYED PA Unavailable Unavailable TONTARSKI, G SYED PA Unavailable Unavailable TONTARSKI, G SYED PA Unavailable Unavailable TONTARSKI, G SYED PA Unavailable Unavailable TONTARSKI, G SYED PA Unavailable Unavailable TONTARSKI, G SYED PA Unavailable Unavailable TONTARSKI, G SYED PA Unavailable Unavailable TONTARSKI, G SYED PA Unavailable Unavailable TONTARSKI, G SYED PA Unavailable Unavailable TONTARSKI, G SYED PA Unavailable Unavailable TONTARSKI, G SYED PA Unavailable Unavailable TONTARSKI, G SYED PA Unavailable Unavailable TONTARSKI, G SYED PA Unavailable Unavailable TONTARSKI, G SYED PA Unavailable Unavailable TONTARSKI, G SYED PA Unavailable Unavailable TONTARSKI, G SYED PA Unavailable Unavailable TONTARSKI, G SYED PA Unavailable Unavailable TONTARSKI, G SYED PA Unavailable Unavailable Scot, A Nathanael PA Unavailable Unavailable Scot, A Nathanael PA Unavailable Unavailable Scot, A Nathanael PA Unavailable Unavailable Scot, A Nathanael PA Unavailable Unavailable Scot, A Nathanael PA Unavailable Unavailable Scot, A Nathanael PA Unavailable Unavailable Scot, A Nathanael PA Unavailable Unavailable Scot, A Nathanael PA Unavailable Unavailable Scot, A Nathanael PA Unavailable Unavailable Scot, A Nathanael PA Unavailable Unavailable Scot, A Nathanael PA Unavailable Unavailable Scot, A Nathanael PA Unavailable Unavailable Scot, A Nathanael PA Unavailable Unavailable Scot, A Nathanael PA Unavailable Unavailable Scot, A Nathanael PA Unavailable Unavailable Scot, A Nathanael PA Unavailable Unavailable Scot, A Nathanael PA Unavailable Unavailable Scot, A Nathanael PA Unavailable Unavailable Scot, A Nathanael PA Unavailable Unavailable Scot, A Nathanael PA Unavailable Unavailable Scot, A Nathanael PA Unavailable Unavailable Scot, A Nathanael PA Unavailable Unavailable Scot, A Nathanael PA Unavailable Unavailable Scot, A Nathanael PA Unavailable Unavailable Scot, A Nathanael PA Unavailable Unavailable Scot, A Nathanael PA Unavailable Unavailable Scot, A Nathanael PA Unavailable Unavailable Scot, A Nathanael PA Unavailable Unavailable Scot, A Nathanael PA Unavailable Unavailable Scot, A Nathanael PA Unavailable Unavailable Scot, A Nathanael PA Unavailable Unavailable Scot, A Nathanael PA Unavailable Unavailable Scot, A Nathanael PA Unavailable Unavailable Scot, A Nathanael PA Unavailable Unavailable Scot, A Nathanael PA Unavailable Unavailable Scot, A Nathanael PA Unavailable Unavailable Scot, A Nathanael PA Unavailable Unavailable Scot, A Nathanael PA Unavailable Unavailable Scot, A Nathanael PA Unavailable Unavailable Scot, A Nathanael PA Unavailable Unavailable Scot, A Nathanael PA Unavailable Unavailable Scot, A Nathanael PA Unavailable Unavailable Scot, A Nathanael PA Unavailable Unavailable Scot, A Nathanael PA Unavailable Unavailable Scot, A Nathanael PA Unavailable Unavailable Scot, A Nathanael PA Unavailable Unavailable Scot, A Nathanael PA Unavailable Unavailable Scot, A Nathanael PA Unavailable Unavailable Scot, A Nathanael PA Unavailable Unavailable Scot, A Nathanael PA Unavailable Unavailable Scot, A Nathanael PA Unavailable Unavailable Scot, A Nathanael PA Unavailable Unavailable Scot, A Nathanael PA Unavailable Unavailable Scot, A Nathanael PA Unavailable Unavailable Scot, A Nathanael PA Unavailable Unavailable Scot, A Nathanael PA Unavailable Unavailable Scot, A Nathanael PA Unavailable Unavailable Scot, A Nathanael PA Unavailable Unavailable Scot, A Nathanael PA Unavailable Unavailable Scot, A Nathanael PA Unavailable Unavailable Scot, A Nathanael PA Unavailable Unavailable Scot, A Nathanael PA Unavailable Unavailable Scot, A Nathanael PA Unavailable Unavailable Scot, A Nathanael PA Unavailable Unavailable Scot, A Nathanael PA Unavailable Unavailable Scot, A Nathanael PA Unavailable Unavailable Scot, A Nathanael PA Unavailable Unavailable Scot, A Nathanael PA Unavailable Unavailable Scot, A Nathanael PA Unavailable Unavailable Scot, A Nathanael PA Unavailable Unavailable Scot, A Nathanael PA Unavailable Unavailable Scot, A Nathanael PA Unavailable Unavailable Scot, A Nathanael PA Unavailable Unavailable Scot, A Nathanael PA Unavailable Unavailable Scot, A Nathanael PA Unavailable Unavailable ANDERSON, ASHANTI Unavailable Unavailable ODALYS AARON Unavailable Unavailable Re-disclosure Warning The records that you are about to access may contain information from federally-assisted alcohol or drug abuse programs. If such information is present, then the following federally mandated warning applies: This information has been disclosed to you from records protected by federal confidentiality rules (42 CFR part 2). The federal rules prohibit you from making any further disclosure of this information unless further disclosure is expressly permitted by the written consent of the person to whom it pertains or as otherwise permitted by 42 CFR part 2. A general authorization for the release of medical or other information is NOT sufficient for this purpose. The Federal rules restrict any use of the information to criminally investigate or prosecute any alcohol or drug abuse patient.The records that you are about to access may contain highly sensitive health information, the redisclosure of which is protected by Article 27-F of the [facility] Public Health law. If you continue you may have access to information: Regarding HIV / AIDS; Provided by facilities licensed or operated by the [facility] Office of Mental Health; or Provided by the [facility] Office for People With Developmental Disabilities. If such information is present, then the following [facility] mandated warning applies: This information has been disclosed to you from confidential records which are protected by state law. State law prohibits you from making any further disclosure of this information without the specific written consent of the person to whom it pertains, or as otherwise permitted by law. Any unauthorized further disclosure in violation of state law may result in a fine or penitentiary sentence or both. A general authorization for the release of medical or other information is NOT sufficient authorization for further disc losure. Family History Family Member Name Family Member Gender Family Member Status Date o f Status Description Data Source(s) Unknown Male Condition Family Member Anxiety diso rder [facility] Unknown Male Condition Family Member Myocardial I nfarction ([place]) [facility] Unknown Male Condition Family Member Alcohol abus e [facility] Unknown Male Diagnosis 12/13/2013 12:00:00 AM EST [facility] ([place]) Encounters Encounter Providers Location Date Indications Data Source(s ) Outpatient Attender: SYED JOHNSON [facility] 08/01/2021 02:00:00 PM EDT [facility] ([facility] Campbell MD) Outpatient Attender: SYED Lemain g 04/18/2021 10:30:00 AM EDT [facility] ([facility]) Inpatient Attender: DANIS Ronquilloender : JOSUE JONES MDAttender: MARIELOS BAKER MDAttender: ODALYS AARONAdmitter: MARIELOS BAKER MD [id number] 09:58:00 AM EDT - 01/29/2021 11:46:00 AM EDT [facility] Patient discharged. Emergency Attender: ASHANTI ANDERSON [id number] 01/22 10:07:00 PM EDT - 01/23/2021 09:52:00 AM EDT [facility] Patient discharged. Outpatient Attender: Nathanael JOHNSON [id number] 02:11:01 PM EST - 12/29/2020 03:18:44 PM EST [facility] 12/28/2020 03:24:00 PM EST - 12/28/2020 03:24:00 PM EST [facility] ([facility]) Outpatient Attender: ARYAN JOHNSON [facility] 12/28/2020 12:00:00 PM EST [facility] ([facility]) Outpatient Attender: Yoly WHALEYCVS 11/30/2020 12:00:00 AM EST [facility] Outpatient Referrer: Kemar Gregg MD 11/23/2020 10:22 :25 AM EST [facility] Recurring Patient Referrer: Alex Mason MD 11/21/2020 02: 43:14 PM EST [facility] Outpatient Attender: Alex Mason MDReferrer: Nathanael JOHNSON 11/20/2020 02:06:40 PM EST [facility] Outpatient Attender: Cyrus Rojo JRReferrer: Nathanael JOHNSON 11/05/2020 09:53:54 AM EST [facility] Recurring Patient Referrer: Nathanael JOHNSON 10/26/2020 09:43:57 AM EST [facility] Outpatient Referrer: Kemar Gregg MD 10/25/2020 02:40 :31 PM EST [facility] Recurring Patient Referrer: Nathanael JOHNSON 10/03/2020 01:34:05 PM EST [facility] Recurring Patient Referrer: Nathanael JOHNSON 10/03/2020 01:32:49 PM EST [facility] Outpatient Attender: Nathanael JOHNSON [id number] 02:41:50 PM EST - 09/29/2020 03:29:43 PM EST [facility] Outpatient Referrer: Kemar Gregg MD 09/29/2020 11:47 :54 AM EST [facility] Unlisted evaluation and management service Performer: Collin Thomas 09/23/2020 06:35:00 PM EST - 09/23/2020 06:50:00 PM EST [facility] ([facility]) Unlisted evaluation and management service 09/10 06:35:00 PM EST [facility] ([facility]) Unlisted evaluation and management service 09/10 04:39:00 PM EST [facility] ([facility]) Unlisted evaluation and management service Performer: Collin Thomas 09/23/2020 04:30:00 PM EST - 09/23/2020 05:15:00 PM EST [facility] ([facility]) Outpatient Attender: RUTH HEMPHILL SALESPERSON JEWELRY-CReferrer: Jameson sanchez MD 09/06/2020 01:15:27 PM EDT [facility] Recurring Patient Referrer: Alex Mason MD 09/05/2020 01: 30:29 PM EDT [facility] Outpatient Attender: Juan Harrison MD [place] 07/24/2020 02:30:00 PM EDT [facility] ([facility] [place]) Outpatient Attender: Kemar Gregg MDConsultant : Kemar Gregg MD [id number] 07/13/2020 12:00:00 AM EDT - 07/13/2020 03:53:45 PM EDT [facility] Outpatient Attender: Nathanael JOHNSON [id number] 08:23:18 AM EDT - 07/03/2020 09:43:36 AM EDT [facility] Outpatient Attender: Zay Riddle MD [id number] 2019 12:00:00 AM EDT - 06/19/2020 11:58:04 AM EDT [facility] Immunizations Vaccine Date Status Description Data Source(s) COVID-19 VACCINE Pfizer 02/06/2021 12:00:00 AM EDT completed [facility] Vaccine Series Complete: YESThis Data wa s Submitted to [facility]. COVID-19 VACCINE Pfizer 01/16/2021 12:00:00 AM EST completed [facility] Vaccine Series Complete: NOThis Data was Submitted to [facility] [employer]. New in 2011. IIV4 09/29/2020 12:00:00 AM EST completed <t d ID="[id number]">Flu Vaccine =>6MOS Quad Pres-Free</td><td>09/29/2020, 09/20/2019</td><td></td> [facility] Medications Medication Brand Name Start Date Product Form Dose Route Admi nistrative Instructions Pharmacy Instructions Status Indications Reaction Description Data Source(s) Hydroxyzine Pamoate 50 MG Oral Capsule hydrOXYzine ( STARIL) 50 MG capsule hydrOXYzine (VISTARIL) 50 MG capsule 01/28/2021 12:00:00 AM EDT 50 mg Oral active Take 1 capsule ( 50 mg total) by mouth 4 (four) times a day as needed for anxiety [facility] gabapentin 100 MG Oral Capsule gabapentin (NEURONTIN) 100 MG capsule gabapentin (NEURONTIN) 100 MG capsule 01/28/2021 12:00:00 AM EDT 100 mg Oral active Take 1 capsule (100 mg total) by mouth 3 (three) times a day [facility] potassium chloride (KLOR-CON) packet 20 mEq 8971-4763-61 01/23/2021 07:05:00 AM EDT 20 meq Oral completed 20 mEq , Oral, Once, 01/23/21 at 0705, For 1 dose [facility] Medication administered onsite fluticasone (FLONASE) 50 MCG/ACT nasal spray 9864-3441-18 12/29/2020 12:00:00 AM EST 2 {spray} Nasal active PND (post-nasal drip) 2 sprays into each nostril daily [facility] PND (post-nasal drip) Probiotic CAPS [id number] 12/29/2020 12:00:00 AM EST 1 {capsule } Oral active Prostatitis, unspecified prostatitis type Take 1 capsule by mouth daily [facility] Prostatitis, unspecified prostatitis typ e Ciprofloxacin 500 MG Oral Tablet Ciprofloxacin HCL 12/28/2020 12:00 :00 AM EST ORAL active [facility] [place] duloxetine 30 MG Delayed Release Oral Ca psule DULoxetine (CYMBALTA) 30 MG capsule DULoxetine (CYMBALTA) 30 MG capsule 12/04/2020 12:00:00 AM EST 60 mg Oral active Take 60 mg by mouth daily [facility] Hydrochlorothiazide 12.5 MG / telmisarta n 80 MG Oral Tablet telmisartan- hydrochlorothiazide (MICARDIS HCT) 80-12.5 MG per tablet telmisartan- hydrochlorothiazide (MICARDIS HCT) 80-12.5 MG per tablet 11/28/2020 12:00:00 AM EST 1 {tbl} Oral active Essential hypertension Take 1 tablet by mouth daily [facility] Essential hypertension Amlodipine 10 MG Oral Tablet amLODIPine (NORVASC) 10 M G tablet amLODIPine (NORVASC) 10 MG tablet 11/28/2020 12:00:00 AM EST 10 mg Oral active Essential hypertension Take 1 tablet (10 mg total) by mouth daily [facility] Essential hypertension Hydrochlorothiazide 12.5 MG / telmisarta n 80 MG Oral Tablet telmisartan- hydrochlorothiazide (MICARDIS HCT) 80-12.5 MG per tablet telmisartan- hydrochlorothiazide (MICARDIS HCT) 80-12.5 MG per tablet 09/25/2020 12:00:00 AM EST 1 {tbl} Oral active Essential hypertension TAKE 1 TABLET BY MOUTH DAILY [facility] Essential hypertension albuterol (PROVENTIL HFA;VENTOLIN HFA) 108 (90 Base) M CG/ACT inhaler [id number] 03/23/2020 12:00:00 AM EDT 2 {puff} Inhalation aborted Uncomplicated asthma, unspecified asthma severity, unspecified whether persistent Inhale 2 puffs every 6 (six) hours as needed for wheezing or shortness of breath [facility] Uncomplicated asthma, unspecified asthma severity, unspecified whether persistent Insurance Providers Payer name Policy type / Coverage type Policy ID Covered democrat ID Covered democrat's relationship to carrasco Policy Carrasco Plan Information [facility] [id number] Self [id number] [place] MEDICAID [id number] Kim [id number] [place] MEDICAID [id number] xxxxxxxxxxx [id number] MEDICAID [id number] MITCH I [id number] Self [id number] [facility] B [id number] Self [id number] MEDICAID M [id number] Self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 Not on file Stress: Not on fileRelationships Social connections: Talks on phone: Not on file Gets together: Not on file Attends judaism service: Not on file Active member of club or organization: Not on file Attends meetings of clubs or organizations: Not on file Relationship status: Not on file Intimate partner violence: Fear of current or ex partner: Not on file Emotionally abused: Not on file Physically abused: Not on file Forced sexual activity: Not on fileOther Topics Concern Bike Helmet Not Asked History of Falls Not Asked Self-Exams Not Asked Caffeine Concern Not Asked Hobby Hazards Not Asked Sleep Concern Not Asked Daily Calcium Supplement Not Asked Lead Exposure Not Asked Special Diet Not Asked Daily Vitamin D Supplement Not Asked Service Not Asked Stress Concern Not Asked Domestic Violence in home Not Asked Radon exposure Not Asked Weight Concern Not Asked Exercise Not Asked Seat Belt Not Asked Well water Not Asked Firearms in home Not AskedSocial History Narrative Not on fileMental Status Exam: APPEARANCE: Well-developed, seemingly well- nourished, white male, T-shirt andhospital pants, hygiene fair, looks his stated age BEHAVIOR: Cooperative MOOD: depressed AFFECT: Irritable JUDGEMENT: limited INSIGHT: limited EYE CONTACT: Good MEMORY: Intact recent and remote ORIENTATION: oriented x3 ATTENTION: Good CONCENTRATION: Good SPEECH: No abnormality rate, rhythm, volume, tone THOUGHT PROCESS: Coherent, logical, goal-directed ASSOCIATIONS: No loosening DELUSIONS: No delusional themes detected SUICIDAL IDEATION: Denied HOMICIDAL IDEATION: Denied HALLUCINATIONS: no objective evidence to suggest he is experiencing percept ualdisturbancesColumbia-Suicide Severity Rating Scale (C-SSRS)Risk Assessment - Risk FactorsNon-Suicidal self-injury: Most recent event; include frequency, description ofinjury and severity:: History of using cocaine in the context of alcohol relapsewhile on Antabuse hoping he would . Denies that there was any sort of asuicide attempt in April of last yearDiagnoses & Symptoms of Concern: : Depression, Substance Use Disorders,Hopelessness or despair, Chronic physical pain, Functional impairment due toillnessNotes:: Chronic complex PTSD. Functional impairment due to physical impairmentsPsychiatric & Substance Use Treatment History:: (established with [facility] [place])Notes:: Currently in [facility] at [facility] & Social Factors (Distal Factors):: History of sexual and psychicalabuse, neglect, or domestic violenceNotes:: History of dysfunctional family dynamic as a childAccess to Lethal Means:: (denies)Precipitants/Activating Events: : Legal or disciplinary problemsNotes:: He is on probation for another 3 years or so.Risk Assessment - Protective FactorsProtective Factors:: Access to clinical interventionsSuicide Risk Level:: ModerateClinical Formulation:: Based on my examination in conjunction with review of thechart I believe Delfina's risk for suicide is moderate given the severity of hisalcohol use disorder and the multiple stressors that acute conjunction with hischronic and complex PTSD.FirearmsWas threat made to harm self/others with a firearm: NoDoes the patient own or have access to firearms: NoAssessment : This is a 55-year-old white male with an alcohol use disorder whichis severe as well as a cannabis use disorder. However he is registered toreceive medical marijuana when he is able to get to the dispensary. In anyevent his alcohol use is ongoing and this worsens his depressive condition.Multiple stressors chronic pain, inability to secure SSD, marital discord,hopelessness. His antidepressant was recently increased. He is in a milddegree of alcohol withdrawal. Not interested in alcohol rehab given that he hasvarious appointments to keep that he does not want to reschedule he is to gethis second COVID vaccination on 02-06-21 and he has an appointment regardingd isability on 02-09-21. We will see how he does over the next 24 to 36 hours.Plan: Continued retention Continue 15-minute checks for another 24 hours Continue GMAW Start hydroxyzine 50 mg 4 times daily as needed anxiety Encouraged to attend groups Motivational psychotherapy CLEMENTINE Longsychiatrrabia This note was dictated using the Runa dictation system. It hassubsequently been edited once post-dictation. Dictation errors may still bepresent and are unintentional. Spelling errors may also be present and areunintentional. If subsequent readers of this note have any questions regardingits content, I can be contacted at [phone] Name Value Range Interpretation Code Description Data Su rce(s) Supporting Document(s) ID Date Data Source [id number] 01/24/2021 10:29:13 AM EDT [facility] NT INFORMATIONPatient MRN Name Date of Age Gend*PT [id number] Delfina Roth 1965 55 years M PSY IPPT Location Admission Date/Time Visit ID Attending [id number] 01/23/21 1219 --- Josue Jones MD([id number]) EPI ID CSN Admitting Provider [id number] Marielos Baker MD([id number])CPE Discharge NotePatient Name: [facility] 01[facility] 0958Date and Time of Assessment: 01/24/2021, 10:28 [facility] Complaint:Chief ComplaintPatient presents with Psychiatric Evaluation Patient stated "I am nuts." Patient is an alcoholic. Drinks on the daily. Hestated he needed to be committed. Sees Kirsty as well as Rajesh George. Said "Iwant to hurt myself and other people." Reported to PCT he will take a room.Patient reports he is applysing for SSDI. Aggressive Behavior Says he needs to stay here so he doesn't hurt his . Patient not verycooperative at this time. Vague one word answers.Age: 55 yearsRace: or [place] NativeGender: maleChart Reviewed and Patient ExaminedDischarge to: Admission to 3-6History of Present IllnessPatient InfoHistory provided by: (Megan)bean weigher used?: NoHPI: Mental Health ProblemPresenting Symptoms: depression, anxietyPatient accompanied by: (transfer from ED)Degree of incapacity (severity) : mildTiming: sporadicProgression: partially resolvedChronicity: recurrentContext : alcohol use, Current interpersonal stressorTreatment compliance: all of the timeRelieved by: antidepressantsIneffective Treatments: none triedAssociated symptoms: irritabilityRisk factors: substance abuse, hx of mental illnessOutside Treatment HistoryTreatment History Location Date of Last Tx Type of Tx Tx Reason/Dx Tx Length of Stay Tx helpful?Drug/Alcohol Rehab? Records Requested? Comments [facility] Outpatient individual treatment Dual Diagnosiscontinues to go Not for rehab Raj[facility] George None continues to go Drug rehabTitleDocumented / Reviewed: 01/23/2021 10:30 AMSelf Harm History :No Current Self Harm: YesSuicide History :No Current Suicide Attempt: YesSubstance Use SUBSTANCE ROUTE OF ADMINISTRATION AGE AT FIRST USE SUBSTANCE LAST TIME USEDSUBSTANCE PATTERN OF USE SUBSTANCE PATTERN OF ABSTINANCE Comments alcohol oral 01.22.2021 daily marijuana smoking medical use PTSDFamily HistoryProblem Relation Age of Onset Anxiety disorder Father Alcohol abuse Father Myocardial Infarction ([place]) Father 50 Dementia Mother Atrial fibrillation Mother Hypertension Sister Hypertension Sister Hypertension SisterSocial HistoryTobacco Use Smoking status: Current Every Day Smoker Packs/day: 1.50 Years: 35.00 Pack years: 52.50 Types: Cigarettes Smokeless tobacco: Never UsedSubstance Use Topics Alcohol use: Not Currently Alcohol/week: 8.0 standard drinks Types: 8 Cans of beer per week Drinks per session: 5 or 6 Binge frequency: Daily or almost daily Comment: 8 beers a week. Drug use: Yes Types: Marijuana Comment: prescribed the vape and uses twice a daySocial HistorySubstance and Sexual ActivitySexual Activity Yes Partners: FemalePast Medical History:Diagnosis Date Alcohol abuse Asthma Cancer Depression Environmental allergies GERD (gastroesophageal reflux disease) Hyperlipidemia Hypertension Panic attacks PTSD (post-traumatic stress disorder)Past Surgical History:Procedure Laterality Date APPENDECTOMY CLAVICLE SURGERY Left AnteriorCare Coordination/CollateralReview of SystemsPsychiatricPsychiatric: Anxiety, Depression, Behavioral ProblemsReview of SystemsAllergic/Immunologic: No pertinent findingsCardiovascular : No pertinent findingsConstitutional Symptoms: No pertinent findingsEndocrine: No pertinent findingsEars, Nose, Mouth and Throat: No pertinent findingsEyes: No pertinent findingsGastrointestinal: No pertinent findingsGenitourinary: No pertinent findingsHemeatological/Lymphatic: No pertinent findingsMusculoskeletal: No pertinent findingsNeurological : No pertinent findingsRespiratory: No pertinent findingsSkin: No pertinent findingsVital SignsBP 152/87 | Pulse 102 | Temp 98.3 F (Oral) | Resp 18 | Ht 5' 11" | Wt 72.6kg | SpO2 97% | BMI 22.32 kg/m Psychiatric ExamMental Status ExamGeneral Appearance: Appears Stated AgeBuild/Stature: TallPosture: WNLHygiene/Grooming: Good HygieneClothing: Appropriately DressedEye Contact: GoodSpeech: SoftPsychomotor Activity: SlowedMood: DepressedAffect: Blunted, ConstrictedThought Content: DepressiveSuicidal Ideation: Suicidal with Intent but No PlanHomicidal Ideation: Denies homicidal thoughtsRemote Memory: IntactRecent Memory: IntactInsight: PoorJudgment: PoorOrientation: Appropriately Oriented [id number] Toward Examiner: CooperativeAssociations: No loosening evidentFund of Knowledge: PoorConcentration: PoorAttention Span: PoorCognition: IntactLanguage: Fluent in English-SSRS Suicide Screening:Adult Risk of Suicide Screenin. In the past three months, have you wished you were or wished you couldgo to sleep and not wake up?: No2. In the past three months, have you actually had any thoughts of killingyourself?: No6. Have you done anything, started to do anything, or prepared to do anything toend your life?: No7.Have you made a suicide attempt in your lifetime (took action to end yourlife)? : NoRisk Factors:Risk Assessment - Risk FactorsDiagnoses & Symptoms of Concern: : Depression, Substance Use DisordersPsychiatric & Substance Use Treatment History:: (established with [facility])Family & Social Factors (Distal Factors):: (denies)Access to Lethal Means:: (denies)Precipitants/Activating Events: : Legal or disciplinary problems(legal problems,turbulant relationship with )Protective Factors:Risk Assessment - Protective FactorsProtective Factors:: Access to clinical interventions, Identification of reasonsfor living, Sense of responsibility to family, pets, or others, Fear of ordying, Cultural, spiritual, or moral attitudes against suicide, Positive currenttherapeutic relationship, Other protective factorsSuicide Risk Level:: ModerateClinical Formulation:: Patient is majorly depressed, expressing feeling hopelessand helpless, denies any history of suicide attempts but is vague about suicidalideation at this time -therapist indicates that he believes there may have deana suicide attempt by ingestion of household book cleaner several months ago(unconfirmed)Discharge MedicationsPatient's MedicationsNew Prescriptions No medications on filePrevious Medications AMLODIPINE (NORVASC) 10 MG TABLET Take 1 tablet (10 mg total) by mouth daily DULOXETINE (CYMBALTA) 30 MG CAPSULE Take 60 mg by mouth daily FLUTICASONE (FLONASE) 50 MCG/ACT NASAL SPRAY 2 sprays into each nostrildaily LANSOPRAZOLE (PREVACID) 30 MG CAPSULE Take 1 capsule (30 mg total) by mouthdaily MEDICAL MARIJUANA PROBIOTIC CAPS Take 1 capsule by mouth daily ROSUVASTATIN (CRESTOR) 10 MG TABLET Take 1 tablet (10 mg total) by mouthdaily TELMISARTAN- HYDROCHLOROTHIAZIDE (MICARDIS HCT) 80-12.5 MG PER TABLET Take 1tablet by mouth dailyModified Medications No medications on fileDiscontinued Medications No medications on fileDiagnosis1. Severe episode of recurrent major depressive disorder, without psychoticfeatures2. Alcohol abuseLabs Obtained /Results:Labs Reviewed - No data to displayHospital Course:Struggling. Needs inpatient careAssessment / Treatment Plan / Discharge PlanAssessment / Discharge PlanningPlan/Assessment #1: admit to 3-6Progress Towards DischargeBilling Code: [id number] signed byMarielos Baker MD01/24/21 1029 Name Value Range Interpretation Code Description Data Su rce(s) Supporting Document(s) ID Date Data Source [id number] 01/24/2021 08:39:49 AM EDT [facility] NT INFORMATIONPatient MRN Name Date of Age Gend*PT [id number] Delfina Roth 1965 55 years M CPET Location Admission Date/Time Visit ID Attending [id number] 01/23/21 1219 --- Marielos Baker MD([id number]) EPI ID CSN Admitting Provider [id number] ---CPE PROGRESS NOTE #1Patient Name: Delfina RothPatient at CPEP: 01/23/21 0958Date and Time of Assessment: 01/24/2021, 8:38 AMPatient Status: CPEP EOB AdmitChief ComplaintChief ComplaintPatient presents with Psychiatric Evaluation Patient stated "I am nuts." Patient is an alcoholic. Drinks on the daily. Hestated he needed to be committed. Sees Kirsty as well as Rajesh George. Said "Iwant to hurt myself and other people." Reported to PCT he will take a room.Patient reports he is applysing for SSDI. Aggressive Behavior Says he needs to stay here so he doesn't hurt his . Patient not verycooperative at this time. Vague one word answers.Current StressorsCurrent Stressors: Pyschiatric Symptoms, Relationship Problems, EmploymentProblemsHistory of Present IllnessPatient InfoHistory provided by: medical records, patientLanguage livestock auctioneer used?: NoHPI: Mental Health ProblemPresenting Symptoms: depression, anxietyPatient accompanied by: (transfer from ED)Degree of incapacity (severity) : mildTiming: sporadicProgression: partially resolvedChronicity: recurrentContext : alcohol use, Current interpersonal stressorTreatment compliance: all of the timeRelieved by: antidepressantsIneffective Treatments: none triedAssociated symptoms: irritabilityRisk factors: substance abuse, hx of mental illnessHistoryPast Psychiatric HistoryOutside Treatment HistoryTreatment History Location Date of Last Tx Type of Tx Tx Reason/Dx Tx Length of Stay Tx helpful?Drug/Alcohol Rehab? Records Requested? Comments [facility] Outpatient individual treatment Dual Diagnosiscontinues to go Not for rehab [facility] George None continues to go Drug rehabPast Suicide / Self Harm HistoryTitleDocumented / Reviewed: 01/23/2021 10:30 AMSelf Harm History :No Current Self Harm: YesSuicide History :No Current Suicide Attempt: YesPsychosocial AssessmentSubstance Use SUBSTANCE ROUTE OF ADMINISTRATION AGE AT FIRST USE SUBSTANCE LAST TIME USEDSUBSTANCE PATTERN OF USE SUBSTANCE PATTERN OF ABSTINANCE Comments alcohol oral 01.22.2021 daily marijuana smoking medical use PTSDFamily HistoryFamily HistoryProblem Relation Age of Onset Anxiety disorder Father Alcohol abuse Father Myocardial Infarction ([place]) Father 50 Dementia Mother Atrial fibrillation Mother Hypertension Sister Hypertension Sister Hypertension SisterSocial HistorySocial HistoryTobacco Use Smoking status: Current Every Day Smoker Packs/day: 1.50 Years: 35.00 Pack years: 52.50 Types: Cigarettes Smokeless tobacco: Never UsedSubstance Use Topics Alcohol use: Not Currently Alcohol/week: 8.0 standard drinks Types: 8 Cans of beer per week Drinks per session: 5 or 6 Binge frequency: Daily or almost daily Comment: 8 beers a week. Drug use: Yes Types: Marijuana Comment: prescribed the vape and uses twice a daySocial HistorySubstance and Sexual ActivitySexual Activity Yes Partners: FemaleRelationships and Living SituationRelationship StatusRelationship Status: MarriedSexual PreferenceSexual Preference: HeterosexualParental StatusParental Status: (does not answer)Social SupportsSocial Support : (no one but reports is )Residence/HomelessResides in : Private ResidenceLives With: Spouse or PartnerWas the patient homeless at any time within the past 6 months?: NoEducation / Employment / HistoryAcademicIs the patient attending school or receiving tutoring or instruction?: NoHighest Grade Achieved: (does not answer)Financial/EmploymentEmployment Description : (Per patient supports but wants SSDI) HistoryMilitary History: NoLegal HistoryLegal HistoryHistory of Legal Problems: NoChildhood Abuse/NeglectMedical/Surgical HistoryPast Medical History:Diagnosis Date Alcohol abuse Asthma Cancer Depression Environmental allergies GERD (gastroesophageal reflux disease) Hyperlipidemia Hypertension Panic attacks PTSD (post-traumatic stress disorder)Past Surgical History:Procedure Laterality Date APPENDECTOMY CLAVICLE SURGERY Left AnteriorReview of SystemsPsychiatricPsychiatric: Anxiety, Depression, Behavioral ProblemsReview of SystemsAllergic/Immunologic: No pertinent findingsCardiovascular : No pertinent findingsConstitutional Symptoms: No pertinent findingsEndocrine: No pertinent findingsEars, Nose, Mouth and Throat: No pertinent findingsEyes: No pertinent findingsGastrointestinal: No pertinent findingsGenitourinary: No pertinent findingsHemeatological/Lymphatic: No pertinent findingsMusculoskeletal: No pertinent findingsNeurological : No pertinent findingsRespiratory: No pertinent findingsSkin: No pertinent findingsPsychiatric Specialty ExaminationVital SignsBP 145/84 | Pulse 104 | Temp 98.5 F (Oral) | Resp 20 | Ht 5' 11" | Wt 72.6kg | SpO2 97% | BMI 22.32 kg/m Detailed Musculoskeletal ExamPhysical Dexterity CommentsMuscle Strength and Tone: Strength and tone within normal limitsGait and Station: Gait steady and station within normal limitsPsychiatric ExamAdult Risk of Suicide Screenin. In the past three months, have you wished you were or wished you couldgo to sleep and not wake up?: No2. In the past three months, have you actually had any thoughts of killingyourself?: No6. Have you done anything, started to do anything, or prepared to do anything toend your life?: No7.Have you made a suicide attempt in your lifetime (took action to end yourlife)? : Jarrod Assessment - Risk FactorsDiagnoses & Symptoms of Concern: : Depression, Substance Use DisordersPsychiatric & Substance Use Treatment History:: (established with [facility])Family & Social Factors (Distal Factors):: (denies)Access to Lethal Means:: (denies)Precipitants/Activating Events: : Legal or disciplinary problems(legal problems,turbulant relationship with )Risk Assessment - Protective FactorsProtective Factors:: Access to clinical interventions, Identification of reasonsfor living, Sense of responsibility to family, pets, or others, Fear of ordying, Cultural, spiritual, or moral attitudes against suicide, Positive currenttherapeutic relationship, Other protective factorsSuicide Risk Level:: ModerateClinical Formulation:: Patient is majorly depressed, expressing feeling hopelessand helpless, denies any history of suicide attempts but is vague about suicidalideation at this time -therapist indicates that he believes there may have deana suicide attempt by ingestion of household book cleaner several months ago(unconfirmed)Labs Obtained/ResultsLabs Reviewed - No data to displayMedications Ordered and AdministeredMedicationsDULoxetine (CYMBALTA) DR capsule 60 mg (60 mg Oral Given 01/23/21 1301)fluticasone (FLONASE) 50 MCG/ACT nasal spray 2 spray (2 sprays Nasal Not Given01/23/21 1205)pantoprazole (PROTONIX) EC tablet 40 mg (40 mg Oral Given 01/23/21 1259)atorvastatin (LIPITOR) tablet 40 mg (40 mg Oral Given 01/23/21 1301)amLODIPine (NORVASC) tablet 10 mg (has no administration in time range)gabapentin (NEURONTIN) capsule 100 mg (100 mg Oral Given 01/23/212028)thiamine tablet 100 mg (100 mg Oral Given 01/23/21 1300)folic acid (FOLVITE) tablet 1 mg (1 mg Oral Given 01/23/21 1300)Daily Margret (THERAGRAN) 1 tablet (1 tablet Oral Given 01/23/21 1300)nicotine (NICODERM CQ) 21 MG/24HR 1 patch (0 patches Transdermal Hold )LORazepam (ATIVAN) tablet 1 mg (has no administration in time range)amLODIPine (NORVASC) tablet 10 mg (10 mg Oral Given 01/23/21 1259)gabapentin (NEURONTIN) capsule 100 mg (100 mg Oral Given 01/23/21 1300)telmisartan (MICARDIS) tablet 80 mg (80 mg Oral Given 01/23/21 1701) Andhydrochlorothiazide (HYDRODIURIL) tablet 12.5 mg (12.5 mg Oral Given 259)LORazepam (ATIVAN) tablet 1 mg (1 mg Oral Given 01/23/21 1259)LORazepam (ATIVAN) tablet 2 mg (2 mg Oral Given 01/23/213)LORazepam (ATIVAN) tablet 2 mg (2 mg Oral Given 01/24/21 0010)Comments on Review of Triage/Assessments/ScreeningsHospital CourseVery depressed and hopeless and helpless. Lots of stresses. Back pain. S/O maybe leaving him soon. Heavy drinking and helpless and hopeless at this time.Struggling. Not improvingNeeds inpatient careAdmit to EOBAssessment / Treatment Plan / Discharge PlanAssessment / Discharge PlanningPlan/Assessment #1: admit to EOBPlan/Assessment #2: needs inpatient careProgress Towards DischargeDiagnosis1. Severe episode of recurrent major depressive disorder, without psychoticfeatures2. Alcohol abuseMDMNumber of Diagnosis or Management Options[] Minimal [] Limited [] Multiple [] Ex tensiveAmount/Complexity of Data Reviewed[] Minimal [] Limited [] Multiple [] ExtensiveMore than 50% of this Evaluation in[] Coordination of Care [] Treatment Planning [] Team Meeting [] Discharge Planning [] Other:[] Counseling [] Coping Skills [] Management Options [] Re:[] Medication Review [] Pt challenges need for medication [] Pt fearful of side effects [] Too early to evaluate effect [] No changes [] No side effectsBilling Code: [id number] Baker MD01/24/21 0839 Name Value Range Interpretation Code Description Data Su rce(s) Supporting Document(s) ID Date Data Source [id number] 01/23/2021 03:55:24 PM [facility]T [facility] NT INFORMATIONPatient MRN Name Date of Age Gend*PT [id number] Delfina Roth 1965 55 years M CPEPPT Location Admission Date/Time Visit ID Attending [id number] 01/23/21 1219 --- Odalys Aaron MD([id number]) EPI ID CSN Admitting Provider [id number] Attestation signed by Odalys Aaron MD at 01/23/2021 3:55 PMInitial time of commencing Psychiatrist [id number] encounter with patient:01/23/21 1208 : Odalys Aaron MDI have examined the patient, [id number], and have personally participated inperforming a psychiatric diagnostic examination. I have participated inperforming or have personally reviewed the patients psychosocial assessment andmedical examination. I have assessed the patient s treatment needs based uponpsychiatric, physical, social and functional evaluations and have reviewed theplan with the patient.The patient appears: tremulous; laying across chairs in waiting roomI have discussed the treatment plan with the patient and team ----CPEP PSYCHIATRIC ASSESSMENTPatient Name: Delfina Castillo at [facility]: 01/23/21 0958Psych BECK OPERATOR First Contact: Yes (01/23/21 1039 : Jael Guzman NP)Chief ComplaintChief ComplaintPatient presents with Psychiatric Evaluation Patient stated "I am nuts." Patient is an alcoholic. Drinks on the daily. Hestated he needed to be committed. Sees Kirsty as well as Rajesh George. Said "Iwant to hurt myself and other people." Reported to [facility] he will take a room.Patient reports he is applysing for SSDI. Aggressive Behavior Says he needs to stay here so he doesn't hurt his . Patient not verycooperative at this time. Vague one word answers.Current StressorsCurrent Stressors: Pyschiatric Symptoms, Relationship Problems, EmploymentProblemsHistory of Present IllnessThe patient is a 55-year-old male with a history of depression, PTSD,alcohol use disorder who presents to [facility] as a transfer from the [facility] ED after hearrived to this facility last evening while intoxicated (ethanol level waselevated at 273 on arrival). While in the emergency department, the patientmade statements about wanting to harm his self, as well as his when he wasintoxicated and also upon sobriety. He was therefore transferred to [facility] forpsychiatric evaluation. Today, the patient was somewhat cooperative withinterview, noted to be guarded and display underlying irritability. He reportsthat he has been increasingly depressed, has accumulating psychosocialstressors. He currently is vague in terms of suicidal ideation at this time,does not elaborate much on the subject. Yet it should be noted that the patientdid endorse suicidal ideation ED MD upon sobriety this morning as well as to miguel RN, thus, providing conflicting reports to various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 blunted. Speech is appropriate. The skin appears normal and is negative for ulcers or rashes. Lymphatic exam: Neck within normal limits. There is no edema of the extremities and less than 2 seconds of capillary refill is present.On examination of the cervical spine, the patient has mild limitations in flexion, extension, lateral bending to each side, and rotation each side. Patient exhibits a normal gait. There is posterior tenderness of the cervical spine. The patient has full bilateral upper extremity motor strength, 5 out of 5 in the deltoids, biceps, wrist extensors, triceps, finger flexors, and hand intrinsics. Sensation is intact to light touch from C5- T1 bilaterally. Reflexes are 2+ in the biceps, brachioradialis, and triceps bilaterally. Assessmentcervical radiculopathy, stenosis C3-7type: radiculopathylocation: cervicaletiology: degenerativeplan:1. Medication: anti- inflammatories as needed.2. Imaging: No further imaging at this time3. Injection: Cervical spine, epidural. Other options include cervical facet blocks if the cervical epidural injection does not provide significant improvement4. Activity:as tolerated. 5. Referral: [place] [facility] injection 6. Surgical management deferred at this point followup after after injection or as needed if inadequate recoveryPrior to surgery consideration the patient would require a negative nicotine test. Surgery would require a 4 level anterior cervical fusion from C3-7 Signatures Electronically signed by : Alex Mason M.D.; Nov 20 2020 2:06PM EST (Author) Name Value Range Interpretation Code Description Data Su rce(s) Supporting Document(s) ID Date Data Source [id number] 11/07/2020 08:50:00 AM EST [facility] PATIENT MR#: [id number] NAME: Delfina Zamorano OF : 1965REFERRING PHYSICIAN: Alex Murray DATE: 11/06/2020MRI cervical spine without intravenous contrastHistory: Spinal stenosis with pain, left upper extremity pain extending into thehandComparison: Cervical spine radiographs October 26, [address] neck withcontrast 11/19/2016Technique: Multiplanar, multisequential imaging of the cervical spine wasperformed without intravenous contrast.Findings:Vertebral body height is maintained.There is very minimal grade 1 retrolisthesis at C3-C4 and minimal grade 1anterolisthesis at C7-T1, likely related to underlying degenerative change.The visualized marrow signal is grossly preserved.The cervical spinal cord is unremarkable in signal and caliber.No suspicious epidural fluid collection is seen.At C2-C3, no significant central spinal canal stenosis or foraminal narrowing isseen.At C3- C4, a posterior disc osteophyte complex, uncovertebral and facetarthropathy is seen. There is severe bilateral foraminal narrowing. Mildcentral spinal canal stenosis is seen.At C4-C5, a posterior disc osteophyte complex, uncovertebral and facetarthropathy is seen. There is severe bilateral foraminal narrowing. Mild tomoderate central spinal canal stenosis is seen.At C5-C6, a posterior disc osteophyte complex, uncovertebral and facetarthropathy is seen. There is mild to moderate central spinal canal stenosisand moderate to severe bilateral foraminal narrowing.At C6-C7, a posterior disc osteophyte complex and uncovertebral degenerativechange is seen. There is a superimposed right haney barticular/foraminal discprotrusion. There is mild central spinal canal stenosis and severe rightforaminal narrowing. Moderate left foraminal narrowing is seen. There is mildcentral spinal canal stenosis.At C7-T1, a very mild broad-based disc protrusion is seen. There is mildbilateral foraminal narrowing, left greater than right. No significant centralspinal canal stenosis is seen.Mild mucoperiosteal thickening is seen within the visualized paranasal sinuses.Impression:Multilevel degenerative disc disease in the cervical spine with mild to moderatecentral spinal canal stenosis at C4-C5 and C5-C6.Severe bilateral foraminal narrowing at C3-C4 and C4-C5. Severe right foraminalnarrowing at C6-C7.Mild central spinal canal stenosis at C3-C4 and C6- C7.Read by: Blanca LatifTranscribed by: Blanca LatifTranscribed Date: 11/07/2020 8:50:14 AMElectronically signed by: Blanca LatifDasmitha signed: 11/07/2020 8:50:37 AM Name Value Range Interpretation Code Description Data [facility] rce(s) Supporting Document(s) ID Date Data Source [id number] 11/05/2020 09:53:54 AM EST [facility] PCName: Delfina RothDOB: 1965Provider: Cyrus NaranjoDORigo: 10/26/2020 Reason For VisitMatthew Remington is a new patient. Patient states he has been having neck pain for years progressively getting worse. He states pain radiates down left arm into hand. He states he has not had any recent images done. The patient is currently residing at home. Patient is not working at this time. History of Present IllnessPatient is a 55-year-old male presents to the office with a chief complaint of chronic nontraumatic neck pain which has been getting worse over the past 6 months. Associated with occasional radiating pain to the occipital region bilaterally. Also has intermittent tingling in his hands. Denies any additional upper extremity symptoms or upper extremity weakness. Aggravated with activities. Recent treatments include home exercises provided by his PCP as well as taking gabapentin. Results/DataXRays were ordered, obtained and interpreted today in the office. Indication: pain/dysfunction. Site: cervical spine Views: 4 Views, AP/Lateral/Obliques Findings:. No fractures, dislocations, or other significant abnormalities. AssessmentNeck pain Plan X-Ray I Cervical Spine - 4 views (XRays were ordered, obtained and interpreted today inthe office. Indication: pain/dysfunction.); Status:Complete; Done: [id number] Perform:SOS22; Due:[id number]; Last Updated By:Desiree Manzanares; 10/26/2020 10:08:54 AM;Ordered; For:Neck pain; Ordered By:Cyrus Naranjo; Work Note (SOS) Treatment Treatment Status: Complete Done: [id number] Ordered;For: Health Maintenance; Ordered By: Cyrus Naranjo Performed: Due: [id number]; Last Updated By: Martina Oates; 10/26/2020 10:38:07 AMComments : Patient may work/ Seek employment.Notify Employer of Restrictions : It is your responsibility to advise your employer of these restrictions, please be aware they may or may not be able to accommodate your restrictions. These restrictions apply to this diagnosis only.Restrictions : No lifting greater than 10 lbs. No repetitive bending or lifting. Sedentary work only.Seen Today for Evaluation and Treatment : The patient was seen today in the office for evaluation and treatment. Plan, Assessment and Recommendation(s) The nature of the diagnosis and various treatment alternatives were discussed today, including invasive, operative, and non-operative options. Chronic nontraumatic neck pain. Recommend further evaluation with MRI cervical spine. Follow-up to review the results. Work / School NoteThe patient is not working at this time. Work restrictions include no lifting greater than 10 pounds, no repetitive bending, no repetitive lifting, and sedentary work only. This document was dictated and electronically signed using [employer] software. A reasonable attempt at proof reading has been made to minimize errors. Please call with any questions. Signatures Electronically signed by : Maya Zhang; Nov 04 2020 9:17PM EST (Author) Electronically signed by : Fred Eastman M.D.; Nov 05 2020 9:53AM EST Name Value Range Interpretation Code Description Data Su e(s) Supporting Document(s) ID Date Data Source [id number] 09/27/2020 02:27:00 PM EST [facility] FASTING:NOFASTING: NOReceived: 0 at 12:00:00 [facility]: [facility] [address] [place], [address]Norman MD Received: 09/26/2020 at 12:00:00 QPT : [facility] [address], [address] [place], [address]Norman MD Received: 09/26/2020 at 12:00:00 QPT : [facility] [address], [address] [place], [address], Norman Caldwell MD Received: 09/26/2020 at 12:00:00 QPT : [facility], [address], [address] [place], [address], Norman Caldwell MD Received: 09/26/2020 at 12:00:00 QPT : [facility], [address], [address] [place], [address], Norman Caldwell MD Name Value Range Interpretation Code Description Data Su rce(s) Supporting Document(s) Urea nitrogen [Mass/volume] in Serum or Plasma 7 mg/dL 7 -25 Normal (applies to non-numeric results) [facility] Creatinine [Mass/volume] in Serum or Plasma 0.84 mg/dL 0.70 -1.33 Normal (applies to non-numeric results) [facility] For patients >49 years of age, the refer ence limitfor Creatinine is approximately 13% higher for peopleidentified as -[place]. Glomerular filtration rate/1.73 sq M.pre dicted [Volume Rate/Area] in Serum, Plasma or Blood by Creatinine-based formula (MDRD) 99 mL/min/1.73m2 > OR = 60 Normal (applies to non-numeric results) [facility] Glomerular filtration rate/1.73 sq M pre dicted among blacks [Volume Rate/Area] in Serum or Plasma by Creatinine-based formula (MDRD) 115 mL/min/1.73m2 > OR = 60 Normal (applies to non-numeric results) [facility] Urea nitrogen/Creatinine [Mass Ratio] in Serum or Plasma NOT APPLICABLE (calc) 6-22 [facility] Sodium [Moles/volume] in Serum or Plasma 126 mmol/L 135-146 Below low normal [facility] Potassium [Moles/volume] in Serum or Plasma [facility] TEST NOT PERFORMEDSpecimen unsuitable fo r testingdue to hemolysis. Chloride [Moles/volume] in Serum or Plasma 93 mmol/L 98-110 Belo w low normal [facility] Carbon dioxide, total [Moles/volume] in Serum or Plasma 17 mmol/ L 20-32 Below low normal [facility] Calcium [Mass/volume] in Serum or Plasma 10.4 mg/dL 8.6-10.3 Above high normal [facility] Protein [Mass/volume] in Serum or Plasma 7.9 g/dL 6.1-8.1 Normal (applies to non-numeric results) [facility] Albumin [Mass/volume] in Serum or Plasma 5.1 g/dL 3.6-5.1 Normal (applies to non-numeric results) [facility] Globulin [Mass/volume] in Serum by calculation 2.8 g/dL (calc) 1 .9-3.7 Normal (applies to non-numeric results) [facility] Albumin/Globulin [Mass Ratio] in Serum or Plasma 1.8 (calc) 1.0-2.5 Normal (applies to non-numeric results) [facility] Bilirubin.total [Mass/volume] in Serum or Plasma 0.6 mg/dL 0.2-1.2 Normal (applies to non-numeric results) [facility] Alkaline phosphatase [Enzymatic activity/volume] in Serum or Plasma 107 U/L 35-144 Normal (applies to non-numeric results) [facility] Aspartate aminotransferase [Enzymatic activity/volume] in Serum or Plasma 47 U/L 10-35 Above high normal [facility] Alanine aminotransferase [Enzymatic activity/volume] in Seru m or Plasma 58 U/L 9-46 Above high normal [facility] ID Date Data Source [id number] 09/27/2020 02:27:00 PM EST [facility] FASTING:NOFASTING: NOReceived: 0 at 12:00:00 QPT: [facility] [address], [address] [place] [address], [phone] MD Received: 09/26/2020 at 12:00:00 QPT : [facility] [address], [address] [place] [address], [phone] MD Received: 09/26/2020 at 12:00:00 QPT : [facility] [address], [address] [place] [address], [phone] MD Received: 09/26/2020 at 12:00:00 QPT : [facility] [address], [address] [place] [address], [phone] MD Received: 09/26/2020 at 12:00:00 QPT : [facility], [address], [address] [facility], [place], [address], Norman Caldwell MD Name Value Range Interpretation Code Description Data Su rce(s) Supporting Document(s) Color of Urine YELLOW YELLOW Normal (applies to non-numeric r esults) [facility] Appearance of Urine CLEAR CLEAR Normal (applies to non-nume gunner results) [facility] Specific gravity of Urine by Test strip 1.011 1.001-1. 035 Normal (applies to non-numeric results) [facility] pH of Urine by Test strip 7.5 5.0-8.0 Normal (applies to non-numeric results) [facility] Glucose [Presence] in Urine by Test strip NEGATIVE NEGATI VE Normal (applies to non-numeric results) [facility] Bilirubin.total [Presence] in Urine by Test strip NEGATIVE NEGATIVE Normal (applies to non-numeric results) [facility] Ketones [Presence] in Urine by Test strip NEGATIVE NEGATI VE Normal (applies to non-numeric results) [facility] Hemoglobin [Presence] in Urine by Test strip NEGATIVE NEG ATIVE Normal (applies to non-numeric results) [facility] Protein [Presence] in Urine by Test strip NEGATIVE NEGATI VE Normal (applies to non-numeric results) [facility] Nitrite [Presence] in Urine by Test strip NEGATIVE NEGATI VE Normal (applies to non-numeric results) [facility] Leukocyte esterase [Presence] in Urine by Test strip NEGATIVE NEGATIVE Normal (applies to non-numeric results) [facility] Leukocytes [#/area] in Urine sediment by Microscopy hi gh power field NONE SEEN /HPF < OR = 5 Normal (applies to non-numeric results) [facility] Erythrocytes [#/area] in Urine sediment by Microscopy high power field NONE SEEN /HPF < OR = 2 Normal (applies to non-numeric results) [facility] Epithelial cells.squamous [#/area] in Ur ine sediment by Microscopy high power field NONE SEEN /HPF < OR = 5 Normal (applies to non-numeric results) [facility] Bacteria [#/area] in Urine sediment by Microscopy high power field NONE SEEN /HPF NONE SEEN Normal (applies to non-numeric results) [facility] Hyaline casts [#/area] in Urine sediment by Microscopy low power field NONE SEEN /LPF NONE SEEN Normal (applies to non-numeric results) [facility] ID Date Data Source [id number] 09/27/2020 02:27:00 PM EST [facility] FASTING:NOFASTING: NOReceived: 0 at 12:00:00 QPT: [facility], [address], [address] [place], [address], Norman Caldwell MD Received: 09/26/2020 at 12:00:00 QPT : [facility], [address], [address] [place], [address]Norman MD Received: 09/26/2020 at 12:00:00 QPT : [facility], [address], [address] [place], [address], Norman Caldwell MD Received: 09/26/2020 at 12:00:00 QPT : [facility], [address], [address] [place], [address], Norman Caldwell MD Received: 09/26/2020 at 12:00:00 QPT : [facility], [address], [address] [place], [address], Norman Caldwell MD Name Value Range Interpretation Code Description Data Su rce(s) Supporting Document(s) Leukocytes [#/volume] in Blood by Automated count 7.6 Thousand/u L 3.8-10.8 Normal (applies to non-numeric results) [facility] Erythrocytes [#/volume] in Blood by Automated count 4.75 Million /uL 4.20-5.80 Normal (applies to non-numeric results) [facility] Hemoglobin [Mass/volume] in Blood 15.8 g/dL 13.2-17.1 Normal (applies to non- numeric results) [facility] Hematocrit [Volume Fraction] of Blood by Automated count 46.5 % 38.5-50.0 Normal (applies to non-numeric results) [facility] Erythrocyte mean corpuscular volume [Entitic volume] by Auto mated count 97.9 fL 80.0-100.0 Normal (applies to non-numeric results) [facility] Erythrocyte mean corpuscular hemoglobin [Entitic mass] by Automated count 33.3 pg 27.0-33.0 Above high normal [facility] Erythrocyte mean corpuscular hemoglobin concentration [Mass/volume] by Automated count 34.0 g/dL 32.0-36.0 Normal (applies to non-numeric results) [facility] Erythrocyte distribution width [Ratio] by Automated count 13.5 % 11.0-15.0 Normal (applies to non-numeric results) [facility] Platelets [#/volume] in Blood by Automated count 341 Thousand/uL 140-400 Normal (applies to non-numeric results) [facility] Platelet mean volume [Entitic volume] in Blood by Ranjith 10. 1 fL 7.5-12.5 Normal (applies to non-numeric results) [facility] Neutrophils [#/volume] in Blood by Automated count 6118 cells/uL 5474-6537 Normal (applies to non-numeric results) [facility] Lymphocytes [#/volume] in Blood by Automated count 904 cells/uL 850-3900 Normal (applies to non-numeric results) [facility] Monocytes [#/volume] in Blood by Automated count 555 cells/uL 200-950 Normal (applies to non-numeric results) [facility] Eosinophils [#/volume] in Blood by Automated count 0 cells/uL 15-500 Below low normal [facility] Basophils [#/volume] in Blood by Automated count 23 cells/uL 0-200 Normal (applies to non-numeric results) [facility] Neutrophils/100 leukocytes in Blood by Automated count 80.5 % 38-80 Above high normal [facility] Lymphocytes/100 leukocytes in Blood by Automated count 11.9 % 15-49 Below low normal [facility] Monocytes/100 leukocytes in Blood by Automated count 7.3 % 0-13 Normal (applies to non-numeric results) [facility] Eosinophils/100 leukocytes in Blood by Automated count 0.0 % 0-8 Normal (applies to non-numeric results) [facility] Basophils/100 leukocytes in Blood by Automated count 0.3 % 0-2 Normal (applies to non-numeric results) [facility] ID Date Data Source [id number] 09/27/2020 02:27:00 PM EST [facility] FASTING:NOFASTING: NOReceived: 0 at 12:00:00 QPT: [facility], [address], [address] [place] [address], [phone], Norman Caldwell MD Received: 09/26/2020 at 12:00:00 QPT : [facility] [address], [address] [place], [address]Norman MD Received: 09/26/2020 at 12:00:00 QPT : [facility], [address], [address] [place], [address]Norman MD Received: 09/26/2020 at 12:00:00 QPT : [facility], [address], [address] [place], [address]Norman MD Received: 09/26/2020 at 12:00:00 QPT : [facility], [address], [address] [place], [address], Norman Caldwell MD Name Value Range Interpretation Code Description Data Su rce(s) Supporting Document(s) Hepatitis C virus Ab [Presence] in Serum or Plasma by Immuno assay NON-REACTIVE NON-REACTIVE Normal (applies to non-numeric results) [facility] Hepatitis C virus Ab Signal/Cutoff in Serum or Plasma by Imm unoassay 0.02 <1.00 Normal (applies to non-numeric results) [facility] HCV antibody was non-reactive. There is no laboratoryevidence of HCV infection.In most cases, no further action is required. However,if recent HCV exposure is suspected, a test for HCV RNA(test code 81125) is suggested.For additional information please refer [email or web address] Rong/faq/[email or web address](This link is being provided for informational/educational purposes only.) ID Date Data Source [id number] 09/27/2020 02:27:00 PM EST [employer] [facility] FASTING:NOFASTING: NOReceived: 0 at 12:00:00 QPT: [facility] [place], [address]Norman MD Received: 09/26/2020 at 12:00:00 QPT : [facility] [place], [address]Norman MD Received: 09/26/2020 at 12:00:00 QPT : [facility] [address] [place], [address], Norman Caldwell MD Received: 09/26/2020 at 12:00:00 QPT : [facility]erniganBement, [address] [place], [address]Norman MD Received: 09/26/2020 at 12:00:00 QPT : [employer] ReidModestaBement, Bill [address], [address] [place], [address], Norman Caldwell MD Name Value Range Interpretation Code Description Data Su rce(s) Supporting Document(s) Reagin Ab [Presence] in Serum by RPR NON-REACTIVE NON-REACTIV E Normal (applies to non-numeric results) [employer] ID Date Data Source [id number] 09/06/2020 01:15:27 PM EDT [facility], PCName: Jaime PelayobellDOB: 1965Provider: Radha Hemphill: 09/05/2020 Chief ComplaintLow back and neck pain. 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 Patient was asked and denies being seen by any Physicians since their last visit. At today's visit patient presents with their Self Implanted Devices The patient does not have any implanted devices. The patient does not have a glucose monitoring device. Patient is not currently working. The patient is being seen for a follow-up > 6 mths (last appt date: 07/07/18) Pain Duration: years Pain Score: a current pain level of 5/10. Condition type: The patient is being seen for a chronic condition. SOS. PAIN LOCATION: the pain is located in the low back and radiates to the left thigh. RELATIONSHIP TO INJURY: This condition is not related to a specific injury. PAST EVALUATION: The patient has been previously evaluated by the following specialty: Orthopedic evaluation by Alex Mason MD. Provider records were obtained, reviewed and on file. PAST TREATMENT has included: PHYSICAL THERAPY/HOME EXERCISE exercise (not effective). INTERVAL EVENTS: include . Patient here today requesting a note for his community service stating that he cannot perform physical service. ASSOCIATED SYMPTOMS: include difficulty sleeping and difficulty walking. FUNCTIONAL LIMITATIONS: The patient's functional status is limited as follows: ability to work, perform activities of daily living and participate in aerobic activity. Review of SystemsConstitutional: Normal. Eyes: Normal. ENT: normal. Cardiovascular: Normal. Respiratory: Normal. Gastrointestinal: Normal. Genitourinary: Normal. Musculoskeletal: lower back pain. Integumentary: Normal. Neurological: Normal. Psychiatric: Normal. Endocrine: Normal. Hematologic/Lymphatic: Normal. Active Problems 1. Low back pain (724.2) (M54.5) 2. Lumbar spondylosis (721.3) (M47.816) Allergies Penicillins Hives;; Recorded By: Nita Bartlett; 07/07/2018 10:25:34 AM Codeine Derivatives Nausea; Recorded By: Nita Bartlett; 07/07/2018 10:25:34 AMDenied Adhesive Tape Recorded By: Nita Bartlett; 07/07/2018 10:25:34 AM Iodinated Contrast Media Recorded By: Nita Bartlett; 07/07/2018 10:25:34 AM Latex Recorded By: Nita Bartlett; 07/07/2018 10:25:34 AM Current Meds amLODIPine Besylate TABS;Therapy: (Recorded:[id number]) to Recorded Citalopram Hydrobromide TABS;Therapy: (Recorded:18Hvy3374) to Recorded Losartan Potassium TABS;Therapy: (Recorded:99Mpd5120) to Recorded Prevacid 30 MG Oral Capsule Delayed Release;Therapy: (Recorded:70Pep1320) to Recorded Past Medical History Denied: History of anticoagulant therapy History of asthma (V12.69) (Z87.09) Denied: History of coagulation defect History of gastroesophageal reflux (GERD) (V12.79) (Z87.19) History of herpes zoster (V12.09) (Z86.19) History of hypertension (V12.59) (Z86.79) History of neck pain (V13.59) (Z87.39) History of panic attacks (V11.8) (Z86.59) History of post traumatic stress disorder (V11.8) (Z86.59) Surgical History Denied: History of Implantable Cardioverter-Defibrillator Denied: History of Pacemaker Placement History of Shoulder Surgery 2016 Broken/Plate Placed Family History Family history of hypertension (V17.49) (Z82.49) Family history of hypertension (V17.49) (Z82.49) Family history of hypertension (V17.49) (Z82.49) Social History Current every day smoker (305.1) (F17.200) Marijuana Occasional alcohol use Unemployed, not looking for work VitalsVital Signs Recorded: 05Sep2020 01:52PM Height: 5 ft 10 inWeight: 162 lb BMI Calculated: 23.24BSA Calculated: 1.91Systolic: 138, SittingDiastolic: 78, SittingHeart Rate: 97Respiration: 18Temperature: 97.6 FO2 Saturation: 97Pain Scale: 5 Physical ExamGeneral: The patient is a well nourished/well developed, male, with a medium build, who is in no acute distress and appears stated age. Eyes: Lids are atraumatic, no lesions, sclerae are anicteric. Ears, Nose, Mouth, Throat: external ears and nose without trauma. Patient wearing a mask due to COVID-19. Respiratory: Normal chest expansion and respiratory effort. Gait and Station: Gait was normal. Skin: Warm, dry, acyanotic. Psychological: Alert and oriented to person, place and time. Mood and affect are pleasant and appropriate. Judgement intact. Insight normal without delusions or hallucinations. Denies suicidal/homicidal ideation. Assessment 1. Low back pain (724.2) (M54.5) 2. Lumbar spondylosis (721.3) (M47.816) Plan 1. Pt will call for Follow-up PRN Follow Up Follow-up Status: Hold For - Scheduling Requested for: 05Sep2020 Medication:. The patient does not receive any medication prescriptions from this office. Treatment includes: FOLLOW UP: The patient will call for a follow up visit. Discussion/[id number] male patient with chronic lumbar pain. 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 As far as I can tell, this patient only has degenerative disc disease and therefore this should not prohibit him from being active. This is in my opinion and appropriate, or reasonable accommodations such as rest during physical activity should be accommodated. I see no reason to exempt him from community service at this time. Patient continues with medical cannabis and states that this is helpful in controlling his pain. He will follow up in this office as needed if he decides to pursue any other treatment modalities. Runa DisclaimerNYSWC Runa Disclaimer: This document was dictated and electronically signed using [employer] software. A reasonable attempt at proof reading has been made to minimize errors. Please call with any questions. Signatures Electronically signed by : Ruth Hemphill NP; Sep 05 2020 2:24PM EST (Author) Electronically signed by : Perry Olmstead MD; Sep 06 2020 1:15PM EST Name Value Range Interpretation Code Description Data Su rce(s) Supporting Document(s) ID Date Data Source [id number] 07/24/2020 02:51:00 PM EDT [facility] Name Value Range Interpretation Code Description Data Su rce(s) Supporting Document(s) Prostate specific Ag [Mass/volume] in Serum or Plasma 0.97 ng/mL 0.00 -4.00 [facility] ([facility]) ID Date Data Source [id number] 07/24/2020 02:37:00 PM EDT [facility] ([facility] Name Value Range Interpretation Code Description Data Su rce(s) Supporting Document(s) Glucose [Presence] in Urine Laboratory test result [facility] ([facility]) Ua Leuko Laboratory test result [facility] ([facility]) Ua Nitrite Laboratory test result [facility] ([facility]) Protein [Presence] in Urine by Test strip Laboratory test result [facility] ([facility]) Ketones [Presence] in Urine by Test strip Laboratory test result [facility] ([facility]) Color of Urine Laboratory test result [facility] ([facility]) Blood [Presence] in Urine by Visual Laboratory test result [facility] ([facility]) Ua Specific [place] 1.020 1.003-1.030 [facility] NT ([facility]) pH of Urine by Test strip 7.0 5.0-7.5 [facility] ([facility]) Clarity of Urine Laboratory test result [facility] ([facility] [place]) Urobilinogen [Mass/volume] in Urine by Test strip 0.2 E.U./dL 0.0-1.0 [facility] ([facility] [place]) Bilirubin.total [Presence] in Urine by Test strip Laboratory test res ult [facility] ([facility] [place]) ID Date Data Source [id number] 07/13/2020 03:01:31 PM EDT [facility] NT INFORMATIONPatient MRN Name Date of Age Gend*PT [id number] Delfina Roth 1965 54 years M ---PT Location Admission Date/Time Visit ID Attending Provider --- --- --- --- EPI ID CSN Admitting Provider [id number] ---[facility] [id number] [facility] [id number] J Tarbell is a 54 years male.Chief ComplaintPatient presents with Follow-up Hyperlipidemia, familial, high LDLCardiology History:HPI: I had the opportunity of seeing Delfina Roth in the office today forcardiovascular follow-up evaluation. 54-year-old gentleman past medical historysignificant for history of hypertension, tobacco use. Recently was symptomaticwith history of palpitation for that he had been to the ER during his ER visitis serial EKG normal sinus rhythm no evidence of any arrhythmia and also serialcardiac biomarkers were negative subsequently was discharged and recommended tofollow up in outpatient cardiology clinic. Occasionally complains of a chestpain at rest no relation to the physical activity. He quit Alcohol use lastyear but continue to smoke. Following the last office visit with I recommendedx-ray stress echocardiogram he came for the stress test but he said he is unableto walk on a treadmill his transthoracic echocardiogram was normal. Followingthis we recommended a pharmacological nuclear stress test but he skipped thesome of the appointment. Today is here for the follow-up. Is still smoking.ROS:CONSTITUTIONAL: No change in weight, No weakness, No fatigue and No fevers,sweats, or chillsEYES:no vision changes or dischargeENT:No hearing loss,rhinitis,hoarseness,massesPULMONARY: No cough, sputum, or hemoptysis, No wheezing, No shortness or breathand No recent change in breathingCARDIOVASCULAR: No chest pain, No shortness of breath, No dyspnea on exertion,No orthopnea, No paroxysmal nocturnal dyspnea, No edema, No palpitations and NosyncopeGASTROINTESTINAL: No abdominal pain, No change in bowel habits, No significantchange in appetite, No nausea, vomiting, diarrhea, or constipation, Nohematemesis, No blood in stools or black tarry stools, No dysphagiaGU : No dysuria, No frequency, No incontinence and No urgencyHEMATOLOGIC: No coagulation disorder, No anemia, No abnormal bleeding, NobruisingEXTREMITIES: No pain, redness or swelling on the joints,SKIN/INTEGUMENTARY: No rash and No itc hingNEUROLOGIC: Normal balance and No weaknessPSYCHIATRIC: No depression, No anxiety and No psychosisALLERGY/IMMUN: No allergic triggersENDOCRINE: No thyroid trouble and No excessive thirst or urinationSLEEP: No sleep disordersALLERGIES/SENSITIVITIES:AllergiesAllergen Reactions Pollen Extract Itching Codeine Other (See Comments) Penicillins Nausea And VomitingPMH:Past Medical History:Diagnosis Date Alcohol abuse Asthma Cancer Depression Environmental allergies GERD (gastroesophageal reflux disease) Hyperlipidemia Hypertension Panic attacks PTSD (post-traumatic stress disorder)PSH:Past Surgical History:Procedure Laterality Date APPENDECTOMY CLAVICLE SURGERY Left AnteriorFH:Family HistoryProblem Relation Age of Onset Anxiety disorder Father Alcohol abuse Father Myocardial Infarction ([place]) Father 50 Dementia Mother Atrial fibrillation Mother Hypertension Sister Hypertension Sister Hypertension SisterSocial HistorySocioeconomic History Marital status: Spouse name: Not on file Number of children: Not on file Years of education: Not on file Highest education level: Not on fileOccupational History Not on fileSocial Needs Financial resource strain: Not on file Food insecurity: Worry: Not on file Inability: Not on file Transportation needs: Medical: Not on file Non-medical: Not on fileTobacco Use Smoking status: Current Every Day Smoker Packs/day: 1.50 Years: 35.00 Pack years: 52.50 Types: Cigarettes Smokeless tobacco: Never UsedSubstance and Sexual Activity Alcohol use: Not Currently Alcohol/week: 6.0 standard drinks Types: 6 Cans of beer per week Drinks per session: 5 or 6 Binge frequency: Daily or almost daily Comment: Pt has been 1 week sober Drug use: Yes Types: Marijuana Comment: prescribed the vape and uses twice a day Sexual activity: Yes Partners: FemaleLifestyle Physical activity: Days per week: Not on file Minutes per session: Not on file Stress: Not on fileRelationships Social connections: Talks on phone: Not on file Gets together: Not on file Attends judaism service: Not on file Active member of club or organization: Not on file Attends meetings of clubs or organizations: Not on file Relationship status: Not on file Intimate partner violence: Fear of current or ex partner: Not on file Emotionally abused: Not on file Physically abused: Not on file Forced sexual a ctivity: Not on fileOther Topics Concern Bike Helmet Not Asked History of Falls Not Asked Self-Exams Not Asked Caffeine Concern Not Asked Hobby Hazards Not Asked Sleep Concern Not Asked Daily Calcium Supplement Not Asked Lead Exposure Not Asked Special Diet Not Asked Daily Vitamin D Supplement Not Asked Service Not Asked Stress Concern Not Asked Domestic Violence in home Not Asked Radon exposure Not Asked Weight Concern Not Asked Exercise Not Asked Seat Belt Not Asked Well water Not Asked Firearms in home Not AskedSocial History Narrative Not on fileSocial HistorySocial History Narrative Not on fileCURRENT MEDS: Scheduled Meds:Continuous Infusions:PRN Meds:.Histories:Patient Active Problem ListDiagnosis Alcohol abuse PTSD (post-traumatic stress disorder) Prostate cancer Hypertension Environmental allergies Asthma Depression with anxiety Hyperlipidemia, familial, high LDL Cigarette smoker GERD without esophagitis Chronic neck and back painCurrent Outpatient MedicationsMedication Sig Dispense Refill albuterol (PROVENTIL HFA;VENTOLIN HFA) 108 (90 Base) MCG/ACT inhaler Inhale 2puffs every 6 (six) hours as needed for wheezing or shortness of breath 1Inhaler 5 amLODIPine (NORVASC) 10 MG tablet Take 1 tablet (10 mg total) by mouth daily30 tablet 5 citalopram (CELEXA) 40 MG tablet Take 1 tablet (40 mg total) by mouth everymorning 30 tablet 5 gabapentin (NEURONTIN) 300 MG capsule Take 1 capsule (300 mg total) by mouth 3(three) times a day 90 capsule 5 lansoprazole (PREVACID) 30 MG capsule Take 1 capsule (30 mg total) by mouthdaily 30 capsule 5 medical marijuana naltrexone (DEPADE) 50 MG tablet Take 1 tablet (50 mg total) by mouth daily 30tablet 5 rosuvastatin (CRESTOR) 10 MG tablet Take 1 tablet (10 mg total) by mouth daily30 tablet 5 telmisartan-hydrochlorothiazide (MICARDIS HCT) 80-12.5 MG per tablet Take 1tablet by mouth daily 30 tablet 5No current facility-administered medications for this visit.Objective:BP 108/84 | Pulse 81 | Temp 98.2 F | Resp 18 | Ht 1.803 m (5' 11") | Wt71.7 kg (158 lb) | SpO2 95% | BMI 22.04 kg/m Examination:General- Conscious alert well orientedIn in no acute distress,cooperative.Neck - No neck vein distention, lymphadenopathy. No definitecarotid bruit, no thyromegaly.Cardiac- Apical impulse not well localized, heart sounds normal inintensity, no definite murmurs, clicks, gallops, rubs.Lungs - Clear to percussion and auscultation, respirations normal.Abdomen - Soft, nontender, no definite hepatosplenomegaly, aorticpulsations not palpable.Extremities - No definite clubbing, cyanosis, varicose veins, pittingedema.Pulses - Bilateral carotid, radial, femoral, popliteal , pedalpulses well palpable and no definite bruits noted.Neurological - No definite localizing or lateralizing neurological signs.Patient is alert well oriented.Psychiatric - Mood and affect appropriate for the clinical setting.Skin/Joints - Skin is warm and dry. No significant swelling in the joints.LABS AND DIAGNOSTIC STUDIESLABS:Lab ResultsComponent Value Date NA 140 07/03/2020 K 4.6 07/03/2020 CL 102 07/03/2020 CO2 25 07/03/2020 BUN 10.0 07/03/2020 CREATININE 1.0 07/03/2020 GLU 92 07/03/2020Lab ResultsComponent Value Date INR 0.95 07/12/2019DIAGNOSTICS:IMAGING:ECG: Normal sinus rhythmAssessment:Active Problems: * No active hospital problems. * hypertensionHyperlipidemiaChronic tobacco useChest pain and palpitation 1. Palpitations POCT AMB EKG Holter monitor - 48 hour ECHOCARDIOGRAM STRESS TEST Plan: palpitation: Although patient complains of palpitation is a EKG in the ERvisit and also EKG today normal sinus rhythm. Given the symptoms we did aHolter monitor which is essentially unremarkable no evidence of any significantarrhythmia or pauses. chest pain: Patient got multiple risk factor for underlying ischemic heartdisease including age, hypertension, hyperlipidemia, chronic tobacco use. Giventhe multiple risk factor we will plan to do the x-ray stress echocardiogramalthough he was unable to walk on a treadmill, his transthoracic echocardiogramis unremarkable. We will schedule a pharmacological nuclear stress test. Hypertension: Needed better blood pressure control will increase the Norvasc to10 mg daily along with the salt restricted diet and continue the rest of themedications. Follow-up in cardiology clinic in 12 monthsStrongly recommended to take the medication on a regular basis.Low-salt, low carbohydrate dietKeep yourself physically active, walking is the best exercise.Need a lifelong risk modification including Diet, exercise And taking care ofthe blood pressure, and a cholesterol. keep the blood pressure between<130/85 mmHg and LDL cholesterol level < 100 mg/dlExercise regularly, lose weight and adopt healthy life style. Patient instructedto call sooner than scheduled if there is a worsening of symptoms ordevelopment of new symptoms.The total time spent on this appointment and coordination of care was 40 mins.Out of this time > 20 mins were spent in discussing about various medical issuesas mentioned above, inclu ding treatment options. All questions were answered.Patient verbalized understandingThis note has been dictated using voice recognition software. Please disregardany inadvertent grammatical errors. Please do not hesitate to contact our officefor clarifications.BO [place], , FACC, FASE, FASNC Name Value Range Interpretation Code Description Data Su rce(s) Supporting Document(s) Procedure Social History Code Duration Value Status Description Data Source(s ) Alcohol intake 01/25/2021 12:00:00 AM EDT Not Currently completed [facility] Cigarette pack-years 01/25/2021 12:00:00 AM EDT UNK completed [facility] Cigarettes smoked current (pack per day) - Reported 01/26/20 12:00:00 AM EDT UNK completed [facility] Smoking 01/25/2021 12:00:00 AM EDT Current every day smoker co mpleted Current every day smoker [facility] Alcohol intake 01/22/2021 12:00:00 AM EDT Not Currently completed [facility] Cigarette pack-years 01/22/2021 12:00:00 AM EDT UNK completed [facility] Cigarettes smoked current (pack per day) - Reported 01/23/20 12:00:00 AM EDT UNK completed [facility] Smoking 01/22/2021 12:00:00 AM EDT Current every day smoker co mpleted Current every day smoker [facility] Alcohol intake 09/30/2020 12:00:00 AM EST Not Currently completed [facility] Cigarette pack-years 09/30/2020 12:00:00 AM EST UNK completed [facility] Cigarettes smoked current (pack per day) - Reported 09/30/20 12:00:00 AM EST UNK completed [facility] Smoking 09/30/2020 12:00:00 AM EST Current every day smoker co mpleted Current every day smoker [facility] Smoking 09/23/2020 12:00:00 PM EST Smokes tobacco daily (findi [employer]) completed Current Every Day Smoker [employer] ([employer] 07/24/2020 12:00:00 AM EDT current cigarette smoker co mpleted current cigarette smoker [facility] ([facility] Vital Signs ID Date Data Source UNK Name Value Range Interpretation Code Description Data Source(s) Systolic blood pressure 145 mm[Hg] 145 mm[Hg] [facility] Diastolic blood pressure 97 mm[Hg] 97 mm[Hg] [facility] Heart rate 82 /min 82 /min [facility] Body temperature 36.67 Ladi 36.67 Ladi [facility] Pt denied s/s of illness. Respiratory rate 16 /min 16 /min [facility] Oxygen saturation in Arterial blood by Pulse oximetry 99 % 99 % [facility] Body height 180.3 cm 180.3 cm [facility] Body weight 72.576 kg 72.576 kg [facility] Body mass index (BMI) [Ratio] 22.32 kg/m2 22.32 kg/m2 [facility] Systolic blood pressure 130 mm[Hg] 130 mm[Hg] [facility] Diastolic blood pressure 70 mm[Hg] 70 mm[Hg] [facility] Heart rate 92 /min 92 /min [facility] Body temperature 36.39 Ladi 36.39 Ladi [facility] Respiratory rate 17 /min 17 /min [facility] Oxygen saturation in Arterial blood by Pulse oximetry 98 % 98 % [facility] Body height 180.3 cm 180.3 cm [facility] Body weight 72.576 kg 72.576 kg [facility] Body mass index (BMI) [Ratio] 22.32 kg/m2 22.32 kg/m2 [facility] Systolic blood pressure 158 mm[Hg] 158 mm[Hg] [facility] Heart rate 103 /min 103 /min [facility] [place] Body height 71 [in_i] 71 [in_i] [facility] [place] 5'11" Body weight 165.00 [lb_av] 165.00 [lb_av] [facility] T ([facility] Body weight 74.844 kg 74.844 kg [facility] [place] Body mass index (BMI) [Ratio] 23.0 kg/m2 23.0 k g/m2 [facility] ([facility] Diastolic blood pressure 84 mm[Hg] 84 mm[Hg] [facility] ([facility] [place] Systolic blood pressure 134 mm[Hg] 134 mm[Hg] [facility] Body height 180.3 cm 180.3 cm [facility] Body weight 73.029 kg 73.029 kg [facility] Body mass index (BMI) [Ratio] 22.45 kg/m2 22.45 kg/m2 [facility] Oxygen saturation in Arterial blood by Pulse oximetry 98 % 98 % [facility] Diastolic blood pressure 74 mm[Hg] 74 mm[Hg] [facility] Heart rate 91 /min 91 /min [facility] Body temperature 36.83 Ladi 36.83 Ladi [facility] Respiratory rate 16 /min 16 /min [facility] Body temperature 36.6 LADI 36.6 LADI [facility] ([facility]) Respiratory rate 18.0 /MIN 18.0 /MIN [facility] ([facility]) Systolic blood pressure 113.0 MM[HG] 113.0 MM[H G] [facility] ([facility]) Diastolic blood pressure 75.0 MM[HG] 75.0 MM[HG ] [facility] ([facility]) Body temperature 97.8 [DEGF] 97.8 [DEGF] NETSMA RT ([facility]) Heart rate 96.0 /MIN 96.0 /MIN [facility] ([facility]) Body temperature 98.2 [DEGF] 98.2 [DEGF] [facility] RT ([facility]) Body temperature 36.8 LADI 36.8 LADI [facility] ([facility]) Heart rate 111.0 /MIN 111.0 /MIN [facility] ([facility]) Respiratory rate 18.0 /MIN 18.0 /MIN [facility] ([facility]) Systolic blood pressure 114.0 MM[HG] 114.0 MM[H G] [facility] ([facility]) Diastolic blood pressure 82.0 MM[HG] 82.0 MM[HG ] [facility] ([facility]) Pain severity - 0-10 verbal numeric rating [Score] - Reported 0.0 S brenda 0.0 Scale [facility] ([facility]) Body temperature 98.1 [DEGF] 98.1 [DEGF] [facility]MA RT ([facility]) Respiratory rate 16.0 /MIN 16.0 /MIN [facility] ([facility]) Body temperature 36.7 LADI 36.7 LADI [facility] ([facility]) Heart rate 73.0 /MIN 73.0 /MIN [facility] ([facility]) Systolic blood pressure 134.0 MM[HG] 134.0 MM[H G] [facility] ([facility]) Diastolic blood pressure 84.0 MM[HG] 84.0 MM[HG ] [facility] ([facility]) Diastolic blood pressure 79.0 MM[HG] 79.0 MM[HG ] [facility] ([facility]) Pain severity - 0-10 verbal numeric rating [Score] - Reported 0.0 S brenda 0.0 Scale [facility] ([facility]) Body temperature 98.6 [DEGF] 98.6 [DEGF] [facility]MA RT ([facility]) Body temperature 37.0 LADI 37.0 LADI [facility] ([facility]) Heart rate 112.0 /MIN 112.0 /MIN [facility] ([facility]) Respiratory rate 16.0 /MIN 16.0 /MIN [facility] ([facility]) Systolic blood pressure 137.0 MM[HG] 137.0 MM[H G] [facility] ([facility]) Body temperature 97.8 [DEGF] 97.8 [DEGF] [facility] RT ([facility]) Body temperature 36.6 LADI 36.6 LADI [facility] ([facility]) Heart rate 101.0 /MIN 101.0 /MIN [facility] ([facility]) Respiratory rate 16.0 /MIN 16.0 /MIN [facility] ([facility]) Systolic blood pressure 125.0 MM[HG] 125.0 MM[H G] [facility] ([facility]) Diastolic blood pressure 83.0 MM[HG] 83.0 MM[HG ] [facility] ([facility]) Pain severity - 0-10 verbal numeric rating [Score] - Reported 0.0 S brenda 0.0 Scale [facility] ([facility]) Body temperature 98.6 [DEGF] 98.6 [DEGF] [facility]MA RT ([facility]) Body temperature 37.0 LADI 37.0 LADI [facility] ([facility]) Heart rate 84.0 /MIN 84.0 /MIN [facility] ([facility]) Respiratory rate 16.0 /MIN 16.0 /MIN [facility] ([facility]) Systolic blood pressure 115.0 MM[HG] 115.0 MM[H G] [facility] ([facility]) Diastolic blood pressure 73.0 MM[HG] 73.0 MM[HG ] [facility] ([facility]) Body temperature 97.4 [DEGF] 97.4 [DEGF] [facility]MA RT ([facility]) Body temperature 36.3 LADI 36.3 LADI [facility] ([facility]) Heart rate 128.0 /MIN 128.0 /MIN [facility] ([facility]) Respiratory rate 18.0 /MIN 18.0 /MIN [facility] ([facility]) Systolic blood pressure 130.0 MM[HG] 130.0 MM[H G] [facility] ([facility]) Diastolic blood pressure 87.0 MM[HG] 87.0 MM[HG ] [facility] ([facility]) Respiratory rate 18.0 /MIN 18.0 /MIN [facility] ([facility]) Systolic blood pressure 137.0 MM[HG] 137.0 MM[H G] [facility] ([facility]) Diastolic blood pressure 74.0 MM[HG] 74.0 MM[HG ] [facility] ([facility]) Body temperature 99.1 [DEGF] 99.1 [DEGF] [facility] RT ([facility]) Body temperature 37.3 LADI 37.3 LADI [facility] ([facility]) Heart rate 128.0 /MIN 128.0 /MIN [facility] ([facility]) Body temperature 98.4 [DEGF] 98.4 [DEGF] NETSMA RT ([facility]) Body temperature 36.9 LADI 36.9 LADI [facility] ([facility]) Heart rate 94.0 /MIN 94.0 /MIN [facility] ([facility]) Respiratory rate 16.0 /MIN 16.0 /MIN [facility] ([facility]) Oxygen saturation in Arterial blood by Pulse oximetry 96.0 % 96.0 % [facility] ([facility]) Systolic blood pressure 145.0 MM[HG] 145.0 MM[H G] [facility] ([facility]) Diastolic blood pressure 84.0 MM[HG] 84.0 MM[HG ] [facility] ([facility]) Glucose [Mass/volume] in Blood 89.0 mg/dL 89.0 mg/dL [facility] ([facility]) Body height 71 [in_i] 71 [in_i] [facility] 5'11" Body weight 165.00 [lb_av] 165.00 [lb_av] MEDEN T ([facility]) Body weight 74.844 kg 74.844 kg [facility] ([facility] Body mass index (BMI) [Ratio] 23.0 kg/m2 23.0 k g/m2 [facility] ([facility]) Systolic blood pressure 139 mm[Hg] 139 mm[Hg] M ED[facility] ([facility]) Diastolic blood pressure 80 mm[Hg] 80 mm[Hg] [facility] ([facility] Heart rate 76 /min 76 /min [facility] [place] Patient Treatment Plan of Care Planned Activity Planned Date Details Description Data Source (s) Hydroxyzine Pamoate 50 MG Oral Capsule 01/28/2021 12:00:00 AM EDT [facility] gabapentin 100 MG Oral Capsule 01/28/2021 12:00:00 AM EDT [facility] fluticasone (FLONASE) 50 MCG/ACT nasal spray 12/29/2020 12:00:00 AM EST [facility] Probiotic CAPS 12/29/2020 12:00:00 AM EST [facility] duloxetine 30 MG Delayed Release Oral Capsule 12/04/2020 12:00:00 A M [facility] Hydrochlorothiazide 12.5 MG / telmisartan 80 MG Oral T ablet 11/28/2020 12:00:00 AM EST [facility] Amlodipine 10 MG Oral Tablet 11/28/2020 12:00:00 AM EST [facility] Hydrochlorothiazide 12.5 MG / telmisartan 80 MG Oral T ablet 09/25/2020 12:00:00 AM EST [facility] albuterol (PROVENTIL HFA;VENTOLIN HFA) 108 (90 Base) M CG/ACT inhaler 03/23/2020 12:00:00 AM EDT [facility]
[2021-09-05] MEDS ORDERED: TRAM50TA2 PO (17:18)
[2021-09-05 17:31] VITALS: BP 141/86
== END 2021-09-05 17:32 | disposition home or self-care (01) ==
LOC: M ED 14:16
DX: M54.12 Radiculopathy, cervical region (principal); G89.29 Other chronic pain; M50.30 Other cervical disc degeneration, unspecified cervical region; F17.200 Nicotine dependence, unspecified, uncomplicated; Z88.0 Allergy status to penicillin; Z88.5 Allergy status to narcotic agent; Z79.899 Other long term (current) drug therapy